=== PATIENT | female | born 1985 | race Caucasian/White ===

== ENCOUNTER 2021-05-11 05:58 | Emergency (ER) | payer MEDICAID, SELFPAY ==
[2021-05-11 06:33] VITALS: BP 120/77; PULSE 87; RESP 18; TEMP 36.3; O2SAT 100
--- NOTE | 2021-05-11 06:51 | ED.GENADULT ---
HPI - General Adult General Chief complaint: General Medical Stated complaint: hip pain Time Seen by Provider: 05/11/21 06:51 Source: patient Mode of arrival: ambulatory History of Present Illness HPI narrative: 35-year-old female who presents with 2 days of acute on chronic right hip pain after she slipped and fell onto her right hip. She has been evaluated by your primary care provider who obtained x-rays and confirmed that there were no acute fractures or dislocations. Patient states that she felt like her hip had improved and then noted that this morning when she woke up she had increasing pain that radiated down the back of her right leg and denies any numbness/tingling/bowel or bladder dysfunction. She also denies any fever, chills, urinary pain/burning/frequency, or GI symptoms. Related Data Previous Rx's Medication Instructions Recorded ketorolac 10 mg tablet 10 mg PO Q6H PRN 5 Days #20 tab 05/11/21 Allergies Allergy/AdvReac Type Severity Reaction Status Date / Time ciprofloxacin Allergy Vomiting Verified 05/11/21 07:07 Review of Systems Review of Systems: Pertinent positives and negatives as stated in HPI 10 point review of systems is otherwise negative. [facility] Social History Social History Patient Tobacco Use Status: Current everyday Tobacco user Smoked in Last 30 Days: Yes Use of substances other than those prescribed or required for medical reasons: No Advance Directives: No Advance Directives Information Provided: Yes Patient : No Physical Exam Vital Signs: Vital Signs: Last Vital Signs Temp 98.6 F 05/11/21 07:02 Pulse 86 05/11/21 07:02 Resp 20 05/11/21 07:02 BP 118/70 05/11/21 07:02 Pulse Ox 99 05/11/21 07:02 Body Mass Index 39.9 VITAL SIGNS: Reviewed. GENERAL: Well developed, well nourished, in no acute distress. HEAD: Normocephalic/atraumatic EYES: PERRLA, EOMI EARS: Ext canals without abnormality NOSE: Nares patent bilateral OROPHARYNX: no oral lesions noted, posterior pharynx clear LUNGS: Normal breath sounds. No adventitious sounds or accessory muscle use. SpO2<100> CARDIOVASCULAR: Regular rate and rhythm without noted murmurs ABDOMEN: Soft, non-tender, non-distended with bowel sounds MUSCULOSKELETAL: No tenderness, deformities, or effusions noted on gross inspection, tenderness on palpation over sciatic on the right EXTREMITIES: No cyanosis, clubbing or edema. NEUROLOGIC: Alert and oriented x 4. Strength 5/5 and sensation to light touch grossly intact x 4, Course Course Course Narrative: 35-year-old female with history and clinical presentation consistent with soft tissue/sciatica type of injury and low clinical suspicion for neurologic etiology or infection. On re-evaluation patient is had some, but not significant improvement in her pain. She was encouraged that this would take a little bit of time in order to completely calm down the flare. There is no suspicion for infectious, kidney, and based on his imaging studies reported by the patient there is no concern for bony/acute joint pathologies. She was otherwise discharged home in stable condition with 2 days off of work and a referral for sports medicine. Medical Decision Making Lab Data Labs: Lab Results 05/11/21 Range/Units 07:08 Urine Color YELLOW Urine Appearance CLEAR Urine pH 6.0 (5.0-8.0) Ur Specific [place] >= 1.030 H (1.005-1.025) Urine Protein NEG (NEG-TRACE) MG/DL Urine Glucose (UA) NEG (NEG) MG/DL Urine Ketones 5 (NEG) MG/DL Urine Blood TRACE (NEG) Urine Nitrite NEG (NEG) Ur Leukocyte Esterase NEG (NEG) Urine RBC 1-4 (0) /HPF Urine WBC 0-2 (0-4) /HPF Ur Squamous Epith Cells 1+ /LPF Urine Bacteria TRACE /LPF Discharge Plan Discharge Clinical Impression: Sciatica of right side Patient Disposition: Home, Self-Care Instructions: Sciatica (ED), Lower Back Exercises (ED) Additional Instructions: Tylenol 1000 mg, orally, every 6 hours as needed for pain control. Do not exceed 4000 mg within 24 hours. Lidocaine patch, available [id number], apply to area of maximal tenderness as directed on the outside packaging. Follow-up with your primary care provider for further discussion regarding your sciatic and possible physical therapy verses Sports Medicine referral. [facility] [address], [place] [address] Return to the ER for acute worsening of symptoms. Prescriptions: New ketorolac 10 mg tablet 10 mg PO Q6H PRN (Reason: pain) 5 Days Qty: 20 RF: 0 Referrals: Joey Starkey PA [Primary Care Provider] - 2 days (Please re-evaluate for right-sided sciatica) Stand Alone Forms: Work/School Release
[2021-05-11 07:02] VITALS: BP 118/70; PULSE 86; RESP 20; TEMP 37; O2SAT 99; BMI 39.9
[2021-05-11 07:14] LABS: Glucose Urine UA NEG (NEG); Leukocyte Esterase Urine NEG (NEG); Nitrite Urine NEG (NEG); Specific Gravity - Urine >= 1.030 (1.005-1.025); UACC Culture Trigger NO; Urine Blood TRACE (NEG); Urine Ketones 5 MG/DL (NEG); Urine Protein NEG (NEG-TRACE)
[2021-05-11 07:15] LABS: Appearance Urine CLEAR; Color Urine YELLOW
[2021-05-11] MEDS: Acetaminophen 325 MG TABLET 975 MG PO (07:17)
[2021-05-11] MEDS: Lidocaine 4 % Patch ADH..PATCH 1 PATCH TRANSDERMA (07:17)
[2021-05-11] MEDS: Ketorolac Tromethamine 15 MG/ML VIAL IM (07:17)
[2021-05-11 07:23] LABS: Bacteria Urine TRACE /LPF; Squamous Epithelial Cell Urine 1+ /LPF; WBC Urine 0-2 /HPF (0-4)
== END 2021-05-11 08:27 | disposition home or self-care (01) ==
PROVIDERS: Emergency Provider Student in an Organized Health Care Education/Training Program; PCP Physician Assistant
DX: M54.41 Lumbago with sciatica, right side (principal); M25.551 Pain in right hip; F17.200 Nicotine dependence, unspecified, uncomplicated; Z71.6 Tobacco abuse counseling; Z79.899 Other long term (current) drug therapy
CPT/HCPCS: 81001; 96372; 99284; J1885

== ENCOUNTER 2021-06-03 14:10 | Emergency (ER) | payer MEDICAID, SELFPAY ==
--- NOTE | ~2021-06-03 | US_ITS ---
EXAMINATION: US PELVIS CLINICAL INFORMATION: Left adnexal pain COMPARISON: None TECHNIQUE: Ultrasound of the pelvis is performed using both transabdominal and transvaginal transducers along with Doppler. Transvaginal imaging is performed due to inadequate visualization transabdominally. FINDINGS: Uterus: The uterus is anteverted and measures 8.6 x 4.0 x 4.[address] limiting assessment. No gross endometrial thickening. The uterus is smooth in contour and has normal myometrial echogenicity. No visible fibroid. Adnexa: Both ovaries are visualized. There is normal color flow to the adnexa. There is no ovarian torsion. There is no pelvic ascites or fluid collection. Right ovary is absent consistent surgical history. Left ovary measures 15.2 mL in volume without any pathologic findings. There is normal intravenous flow seen to the left ovary. No free fluid. US/US pelvic and transvaginal IMPRESSION: Normal appearance of the remaining left ovary. No evidence of any active torsion or focal mass. IUD in place without migration grossly.
--- NOTE | ~2021-06-03 | US_ITS ---
EXAMINATION: US PELVIS CLINICAL INFORMATION: Left adnexal pain COMPARISON: None TECHNIQUE: Ultrasound of the pelvis is performed using both transabdominal and transvaginal transducers along with Doppler. Transvaginal imaging is performed due to inadequate visualization transabdominally. FINDINGS: Uterus: The uterus is anteverted and measures 8.6 x 4.0 x 4.[address] limiting assessment. No gross endometrial thickening. The uterus is smooth in contour and has normal myometrial echogenicity. No visible fibroid. Adnexa: Both ovaries are visualized. There is normal color flow to the adnexa. There is no ovarian torsion. There is no pelvic ascites or fluid collection. Right ovary is absent consistent surgical history. Left ovary measures 15.2 mL in volume without any pathologic findings. There is normal intravenous flow seen to the left ovary. No free fluid. US/US pelvic ovarian doppler IMPRESSION: Normal appearance of the remaining left ovary. No evidence of any active torsion or focal mass. IUD in place without migration grossly.
[2021-06-03 14:18] VITALS: BP 125/79; PULSE 100; RESP 20; TEMP 36.9; O2SAT 98; BMI 23.3
[2021-06-03 14:49] LABS: Appearance Urine CLEAR; Color Urine YELLOW; Glucose Urine UA NEG (NEG); Leukocyte Esterase Urine NEG (NEG); Nitrite Urine NEG (NEG); PH 5.5 (5.0-8.0); Specific Gravity - Urine >= 1.030 (1.005-1.025); UACC Culture Trigger NO; Urine Blood TRACE (NEG); Urine Ketones NEG (NEG); Urine Protein TRACE MG/DL (NEG-TRACE)
[2021-06-03 14:56] LABS: Bacteria Urine TRACE /LPF; RBC Urine 0-2 /HPF (0); Squamous Epithelial Cell Urine 2+ /LPF; WBC Urine 0 /HPF (0-4)
--- NOTE | 2021-06-03 15:35 | ED_ITS ---
HPI - Female Genitourinary General Chief complaint: General Medical Stated complaint: ovarian pain Time Seen by Provider: 06/03/21 15:31 Source: patient Mode of arrival: ambulatory Limitations: no limitations History of Present Illness HPI Narrative: 55-year-old female presents with 2 days of left lower pelvic pain. States that it feels burning deep inside her left pelvic vaginal area. She has been nauseous, states the pain is a 10/10. Patient has a history of oophorectomy due to a cyst. Patient has . States she has had white vaginal discharge and dysuria. No vaginal itching, no vaginal bleeding, no hematuria. Patient has an IUD, has not had any breakthrough bleeding, no fevers, no vomiting, no abdominal pain, no radiation of back pain. Patient has no new sex partners, she has been for 10 years and is sexually active with MD elicited complaint: dysuria and pelvic pain Pertinent past history: IUD Onset (ago): day(s) (2) Severity: severe Severity scale (1-10): 10 Quality of pain: burning Consistency: constant Vaginal discharge: white Vaginal bleeding: none Urinary symptoms: Dysuria Relieving factors: none Associated symptoms: nausea Treatment prior to arrival: none Sexual activity: Yes Related Data Previous Rx's Medication Instructions Recorded ketorolac 10 mg tablet 10 mg PO Q6H PRN 5 Days #20 tab 05/11/21 ketorolac 10 mg tablet 10 mg PO Q6H 5 Days #20 tab 06/03/21 Allergies Allergy/AdvReac Type Severity Reaction Status Date / Time ciprofloxacin Allergy Vomiting Verified 06/03/21 14:18 Review of Systems Constitutional: Constitutional: Denies body ache(s), Denies chills, Denies fatigue, Denies fever(s), Denies headache(s), Denies malaise and Denies weakness Eyes: Eyes: Denies diplopia ENT: Denies vertigo, Denies dizziness, Denies headache(s) and Denies throat swelling Cardiovascular: Cardiovascular: Denies chest pain, Denies syncope, Denies leg edema, Denies lightheadedness, Denies Loss of Consciousness, Denies palpitations and Denies dyspnea Respiratory: Respiratory: Denies chest congestion, Denies cough and Denies dyspnea Gastrointestinal: Gastrointestinal: Reports abdominal pain, Denies hematochezia, Denies constipation, Denies diarrhea and Denies vomiting Genitourinary: Genitourinary: Denies abnormal vaginal bleeding, Denies hematuria, Denies difficulty voiding, Denies genital pruritis, Reports dysuria, Reports pelvic pain, Denies sexual dysfunction, Denies flank pain, Denies urinary incontinence, Denies urinary urgency, Reports vaginal discharge, Denies vaginal odor and Denies vaginal pruritus Musculoskeletal: Musculoskeletal: Reports no additional musculoskeletal complaints Neurologic: Denies confusion, Denies vertigo, Denies dizziness, Denies syncope, Denies headache(s) and Denies weakness Psychiatric: Psychiatric: Denies anxiety, Denies confusion and Denies depression Endocrine: Endocrine: Denies fatigue and Denies palpitations Allergic/Immunologic: Allergic/Immunologic: Denies throat swelling PMFSH Past Medical History Medical History (Updated 06/03/21 @ 18:34 by AUDREY Roach) Anxiety Depression UTI (urinary tract infection) Surgical History History of salpingo-oophorectomy Social History Social History Patient Tobacco Use Status: Current everyday Tobacco user Advance Directives: No Patient : No Physical Exam Vital Signs: Vital Signs: Last Vital Signs Temp 98.4 F 06/03/21 14:18 Pulse 100 06/03/21 14:18 Resp 20 06/03/21 14:18 BP 125/79 06/03/21 14:18 Pulse Ox 98 06/03/21 14:18 Body Mass Index 23.3 Const: General: alert, awake and in distress (d/t pain) mild; No confusion Nutritional Appearance: obese centrally obese Orientation/consciousness: No confusion Limitations: no limitations HENMT: Head: Yes normal to inspection, Yes normocephalic and Yes atraumatic Ears: hearing grossly normal bilaterally, external ears normal, TM's normal bilaterally and EAC's normal General nose exam: Normal external nose present Face and sinus: Yes normal facial exam and Yes sinuses nontender Mouth: Normal oral and palatal mucosa present Throat: Yes posterior oropharynx normal Eyes: Conjunctivae: conjunctivae normal Pupils: Equal, round and reactive pupils present EOM: EOMs intact bilaterally Neck: Neck: Yes full ROM, Yes no lymphadenopathy and Yes supple Resp: Effort & Inspection: normal respiratory effort and able to speak in complete sentences Auscultation: clear to auscultation bilaterally, no crackles, no rales, no rhonchi and no wheezes Cardio: Rate: regular rate Rhythm: regular rhythm Heart sounds: S1 normal heart sound present and S2 normal heart sound present GI: Inspection: Yes normal to inspection Palpation (GI): Soft to palpation, nontender, no guarding and not rigid Percussion: Yes normal to percussion Auscultation: normal bowel sounds Skin: General skin exam: no rashes or lesions noted Neuro: General: No confusion Cranial nerves: Yes Equal, round and reactive pupils present Extrem: General: Yes normal to inspection and Yes full ROM Psych: Appearance: grossly normal Affect: normal affect Attitude: cooperative Thought process: Normal thought process present Course Course Course Narrative: 35-year-old female with IUD in past medical history of oophorectomy due to cyst presents for left lower pelvic pain, with white vaginal discharge and mild hematuria. Will get urine, , STD test, do pelvic exam, decide if patient needs a pelvic ultrasound Reevaluation(s) Reevaluation #1: Patient has no cervical motion tenderness but does have left adnexal tenderness. Patient has clear stretchy discharge, but looks like cervical Spinnaker discharge. IUD strings were visualized Ordered pelvic US Reevaluation #2: UA negative, U preg negative. NO trich or yeast. US: Normal appearance of the remaining left ovary. No evidence of any active torsion or focal mass. IUD in place without migration grossly. Consult patient will call her with results of other STD testing. Counseled patient that this looks like ovulation pain. Asked her to call her pattern clerk tomorrow morning. Started her on ketorolac. Constipation if she has any worsening symptoms, she should return to the emergency [facility] - Female Genitourinary Lab Data Labs: Lab Results 06/03/21 06/03/21 Range/Units 14:32 14:32 Urine Color YELLOW Urine Appearance CLEAR Urine pH 5.5 (5.0-8.0) Ur Specific [place] >= 1.030 H (1.005-1.025) Urine Protein TRACE (NEG-TRACE) MG/DL Urine Glucose (UA) NEG (NEG) MG/DL Urine Ketones NEG (NEG) MG/DL Urine Blood TRACE (NEG) Urine Nitrite NEG (NEG) Ur Leukocyte Esterase NEG (NEG) Urine RBC 0-2 (0) /HPF Urine WBC 0 (0-4) /HPF Ur Squamous Epith Cells 2+ /LPF Urine Bacteria TRACE /LPF Urine Test NEGATIVE (NEGATIVE) Discharge Plan Discharge Clinical Impression: Ovulation pain Patient Disposition: Home, Self-Care Instructions: Erin (ED) Additional Instructions: Please take ketorolac as prescribed. Please call your pattern clerk tomorrow morning for a follow-up appointment. Please read the printout I included in your discharge on ovarian pain. Please return to emergency room if you have worsening pelvic pain, abdominal pain, fevers, nausea vomiting, or any other symptoms. Prescriptions: New ketorolac 10 mg tablet 10 mg PO Q6H 5 Days Qty: 20 RF: 0 No Action ketorolac 10 mg tablet 10 mg PO Q6H PRN (Reason: pain) 5 Days Qty: 20 RF: 0
[2021-06-03] MEDS: oxyCODONE HCl Immed Release 5 MG TABLET PO ×2 (15:57→18:54)
[2021-06-03 16:42] LABS: UPreg QC Valid YES; Urine Pregnancy NEGATIVE (NEGATIVE)
--- NOTE | 2021-06-03 18:57 | PC.NURSE ---
AUDREY HICKMAN CANCELLED IV AND LAB US NORMAL.
[2021-06-04 03:24] LABS: CT PCR NOT DETECTED (Not Detect.); NG PCR NOT DETECTED (Not Detect.)
[2021-06-04 08:41] LABS: BV Int Neg Control Negative (Negative); BV Int Pos Control Positive (Positive)
== END 2021-06-03 19:04 | disposition home or self-care (01) ==
PROVIDERS: Physician Assistant; Emergency Provider Emergency Medicine Emergency Medical Services; PCP Physician Assistant
DX: R30.0 Dysuria (principal); R10.2 Pelvic and perineal pain; Z79.899 Other long term (current) drug therapy; F17.200 Nicotine dependence, unspecified, uncomplicated; Z71.6 Tobacco abuse counseling
CPT/HCPCS: 76830; 76856; 81001; 81025; 87480; 87491; 87510; 87591; 87660; 93975; 96372; 99284

== ENCOUNTER 2021-08-31 13:34 | Emergency (ER) | payer MEDICAID, SELFPAY ==
--- NOTE | ~2021-08-31 | XR_ITS ---
EXAMINATION: XR CHEST CLINICAL INFORMATION: Chest pain COMPARISON: None TECHNIQUE: AP portable view of the chest was obtained. FINDINGS: No significant abnormality is noted involving the heart, lungs, mediastinum, bony thorax or soft tissues. XR/XR chest 1V IMPRESSION: No acute disease.
--- NOTE | 2021-08-31 13:36 | ED_ITS ---
HPI - Chest Pain General Chief Complaint: Chest Pain Stated Complaint: cp Time Seen by Provider: 08/31/21 13:36 Source: patient Mode of arrival: EMS Limitations: no limitations History of Present Illness MD complaint: chest pain Onset (ago): hour(s) (started around 1130am) Timing of current episode: constant Prior episodes: No Onset: during rest Pain location: substernal Pain radiation: none Severity: moderate Quality: aching Relieving factors: nothing Exacerbating factors: inspiration, palpation and movement Context: recent illness (has had a cold all week - 2 COVID vaccines) Associated symptoms: dyspnea Treatment prior to arrival: none Related Data Previous Rx's Medication Instructions Recorded ketorolac 10 mg tablet 10 mg PO Q6H PRN 5 Days #20 tab 05/11/21 ketorolac 10 mg tablet 10 mg PO Q6H 5 Days #20 tab 06/03/21 cyclobenzaprine 10 mg tablet 10 mg PO TID PRN #14 tab 08/31/21 ibuprofen 600 mg tablet 600 mg PO Q6H PRN #30 tab 08/31/21 lidocaine 4 % topical patch 1 patch TOPICAL DAILY PRN #10 ea 08/31/21 Allergies Allergy/AdvReac Type Severity Reaction Status Date / Time ciprofloxacin Allergy Vomiting Verified 06/03/21 14:18 Review of Systems Review of Systems: Constitutional : No Weight loss, No Fever, No Chills ENT/Mouth : No sore throat, pos Rhinorrhea Eyes: No Eye Pain, No Swelling Cardiovascular : pos Chest Pain, pos SOB, no Dyspnea on Exertion, No Orthopnea, No Edema, No Palpitations Respiratory : pos Cough, No Sputum Gastrointestinal : no Nausea, No Vomiting, No Diarrhea, No abdominal Pain, No Hematochezia, No Melena Genitourinary : No Dysuria, No Urinary Frequency Musculoskeletal : No joint pain, No Myalgias, No Joint Swelling Skin : No Skin Lesions, No rash Neuro : No Weakness, No Numbness, No Dizziness, No Headache Psych : No Anxiety/Panic, No Depression Heme/Lymph: No Bruising, No Lymphadenopathy Endocrine : No Polyuria, No Polydipsia All other systems reviewed and are negative PMFSH Past Medical History Medical History Anxiety Depression UTI (urinary tract infection) Surgical History History of salpingo-oophorectomy Social History Social History Alcohol intake: never Patient Tobacco Use Status: Current everyday Tobacco user Use of substances other than those prescribed or required for medical reasons: No Advance Directives: No Advance Directives Information Provided: No Patient : No Physical Exam Vital Signs: Vital Signs: Last Vital Signs Temp 98.0 F 08/31/21 14:00 Pulse 75 08/31/21 15:41 Resp 14 08/31/21 15:41 BP 113/68 08/31/21 15:41 Pulse Ox 99 08/31/21 15:41 BMI result Body Mass Index 39.1 Appearance: Alert. Oriented X3. No acute distress. Eyes: Pupils equal, round and reactive to light. ENT: Pharynx normal. Neck: Normal inspection. Neck supple. CVS: Normal heart rate and rhythm. Pulses normal. Chest: ttp along lower sternum reproduces pain Respiratory: No respiratory distress. Breath sounds normal. Abdomen: Soft and nontender. Skin: Skin warm and dry. Normal skin color. Normal skin turgor. Extremities: No lower extremity edema. No calf ttp Neuro: Oriented X 3. No motor deficit. No sensory deficit. Course Course Course Narrative: signed out to Alyson SENIOR PROGRAM MANAGER pending repeat troponin MDM - Chest Pain MDM Narrative Medical decision making narrative: 36 yo female with anxiety, no OCPs here with reproduceable CWP - onset 2 hours ago has had URI symptoms and pain is along sternum. Seems atypical for ACS, likely costochondritis. PERC negative - will obtain labs, CXR, EKG, COVID swab, troponin x 2. Dispo per results and findings. Lab Data Result diagrams: 08/31/21 13:56 08/31/21 13:56 Labs: Lab Results 08/31/21 08/31/21 08/31/21 Range/Units 13:51 13:56 13:56 WBC 10.3 (4.8-10.8) X10*3/uL RBC 4.39 (4.20-5.50) X10*6/uL Hgb 13.5 (12.0-16.0) g/dl Hct 39.8 (37.0-47.0) % MCV 90.7 (80.0-98.0) fL MCH 30.8 (27.0-33.0) pg MCHC 33.9 (31.0-35.0) g/dl RDW 12.2 (11.0-16.0) % Plt Count 251 (160-400) X10*3/uL MPV 10.5 (9.4-12.3) fL Immature Gran % (Auto) 0.5 H (0.0-0.4) % Neut % (Auto) 62.0 (45-73) % Lymph % (Auto) 28.7 (20-40) % Nelson % (Auto) 5.2 (2-11) % Eos % (Auto) 3.0 (0-4) % Baso % (Auto) 0.6 (0-2) % Lymph # (Auto) 3.0 (1.2-4.9) X10*3/uL Nelson # (Auto) 0.5 (0.1-1.2) X10*3/uL Eos # (Auto) 0.3 (0.0-0.4) X10*3/uL Baso # (Auto) 0.1 (0.0-0.2) X10*3/uL Abs Immat Gran (auto) 0.05 H (0.00-0.03) X10*3/uL Absolute Neuts (auto) 6.4 (2.0-8.3) x10*3/uL Absolute Nucleated RBC 0.000 (0.0-0.012) X10*3/uL Nucleated RBC % (auto) 0.0 (0.0-0.2) /100WBC Sodium 140 (135-145) mmol/L Potassium 3.5 (3.3-5.1) mmol/L Chloride 108 (96-108) mmol/L Carbon Dioxide 25 (22-29) mmol/L Anion Gap 11 L (12-20) BUN 12 (9-16) mg/dL Creatinine 0.72 (0.5-1.4) mg/dL Estim Creat Clear Calc 133.5 Estimated GFR > 60 Random Glucose 120 H (60-115) mg/dL Calcium 9.0 (8.4-10.2) mg/dL Magnesium 2.1 (1.6-2.6) mg/dL Total Bilirubin 0.6 (0.0-1.0) mg/dL Direct Bilirubin 0.2 (0.0-0.5) mg/dL AST 31 (5-31) U/L ALT 47 H (0-31) U/L Alkaline Phosphatase 105 (39-117) U/L Troponin I High Sens (<3.5-17.0) ng/L Total Protein 6.6 (6.5-8.0) g/dL Albumin 4.0 (3.5-5.0) g/dL Lipase 23 (8-78) U/L COVID-19 (KRISTIN) Negative (Negative) COVID-19 Clin Com See Note 08/31/21 Range/Units 13:56 WBC (4.8-10.8) X10*3/uL RBC (4.20-5.50) X10*6/uL Hgb (12.0-16.0) g/dl Hct (37.0-47.0) % MCV (80.0-98.0) fL MCH (27.0-33.0) pg MCHC (31.0-35.0) g/dl RDW (11.0-16.0) % Plt Count (160-400) X10*3/uL MPV (9.4-12.3) fL Immature Gran % (Auto) (0.0-0.4) % Neut % (Auto) (45-73) % Lymph % (Auto) (20-40) % Nelson % (Auto) (2-11) % Eos % (Auto) (0-4) % Baso % (Auto) (0-2) % Lymph # (Auto) (1.2-4.9) X10*3/uL Nelson # (Auto) (0.1-1.2) X10*3/uL Eos # (Auto) (0.0-0.4) X10*3/uL Baso # (Auto) (0.0-0.2) X10*3/uL Abs Immat Gran (auto) (0.00-0.03) X10*3/uL Absolute Neuts (auto) (2.0-8.3) x10*3/uL Absolute Nucleated RBC (0.0-0.012) X10*3/uL Nucleated RBC % (auto) (0.0-0.2) /100WBC Sodium (135-145) mmol/L Potassium (3.3-5.1) mmol/L Chloride (96-108) mmol/L Carbon Dioxide (22-29) mmol/L Anion Gap (12-20) BUN (9-16) mg/dL Creatinine (0.5-1.4) mg/dL Estim Creat Clear Calc Estimated GFR Random Glucose (60-115) mg/dL Calcium (8.4-10.2) mg/dL Magnesium (1.6-2.6) mg/dL Total Bilirubin (0.0-1.0) mg/dL Direct Bilirubin (0.0-0.5) mg/dL AST (5-31) U/L ALT (0-31) U/L Alkaline Phosphatase (39-117) U/L Troponin I High Sens < 3.5 (<3.5-17.0) ng/L Total Protein (6.5-8.0) g/dL Albumin (3.5-5.0) g/dL Lipase (8-78) U/L COVID-19 (KRISTIN) (Negative) COVID-19 Clin Com ECG Data ECG #1: Attestation: I personally reviewed and interpreted this ECG as follows: ECG interpretation date: 08/31/21 ECG interpretation time: 14:03 Interpretation: Rate: 74 Rhythm: NSR [place]: normal Normal P waves. Normal YESSENIA. Normal QRS complex. ST T wave : no RAYNE, normal qTC: normal prior studies: no acute ischemia The study has been interpreted contemporaneously by me. . Discharge Plan Discharge Clinical Impression: Costochondritis Instructions: Costochondritis (ED) Additional Instructions: return to ED for any worsening symptoms or concerns COVID test negative 08/31 Prescriptions: New cyclobenzaprine 10 mg tablet 10 mg PO TID PRN (Reason: muscle spasm) Qty: 14 RF: 0 lidocaine 4 % adhesive patch,medicated 1 patch topical DAILY PRN (Reason: pain) Qty: 10 RF: 0 ibuprofen 600 mg tablet 600 mg PO Q6H PRN (Reason: pain) Qty: 30 RF: 0 No Action ketorolac 10 mg tablet 10 mg PO Q6H PRN (Reason: pain) 5 Days Qty: 20 RF: 0 ketorolac 10 mg tablet 10 mg PO Q6H 5 Days Qty: 20 RF: 0 Referrals: Joey Starkey PA [Primary Care Provider] - 3 days (if not better ) Stand Alone Forms: Work/School Release
[2021-08-31 13:42] VITALS: BP 120/80; BP 126/68; PULSE 80; PULSE 81; RESP 14; TEMP 36.7; O2SAT 100; O2SAT 99; BMI 39.1
--- NOTE | 2021-08-31 13:45 | ECG_ITS ---
Test Reason : CHEST PAIN Blood Pressure : / mmHG Vent. Rate : 074 BPM Atrial Rate : 074 BPM P-R Int : 146 ms QRS Dur : 082 ms QT Int : 386 ms P-R-T Axes : 022 030 024 degrees QTc Int : 428 ms Normal sinus rhythm Normal ECG No previous ECGs available Referred By: Beatriz Pearce Electronically Signed By:MAGDIEL MOLINA
[2021-08-31 14:00] VITALS: PULSE 74; TEMP 36.7; O2SAT 100
[2021-08-31] MEDS: Cyclobenzaprine HCl 10 MG TABLET PO (14:00)
[2021-08-31 14:01] LABS: MANUAL DIFF FLAG NO
[2021-08-31 14:02] LABS: Basophils Absolute Auto 0.1 X10*3/uL (0.0-0.2); Basophils Percent Auto 0.6 % (0-2); Eosinophils Absolute Auto 0.3 X10*3/uL (0.0-0.4); Hematocrit 39.8 % (37.0-47.0); Hemoglobin 13.5 g/dl (12.0-16.0); Imm Gran Abs Auto 0.05 X10*3/uL (0.00-0.03); Imm Gran Pct Auto 0.5 % (0.0-0.4); Lymphocytes Percent Auto 28.7 % (20-40); Mean Corpuscular HGB Conc 33.9 g/dl (31.0-35.0); Mean Corpuscular Hemoglobin 30.8 pg (27.0-33.0); Mean Corpuscular Volume 90.7 fL (80.0-98.0); Mean Platelet Volume 10.5 fL (9.4-12.3); Monocytes Absolute Auto 0.5 X10*3/uL (0.1-1.2); Monocytes Percent Auto 5.2 % (2-11); Neutrophils Absolute Auto 6.4 x10*3/uL (2.0-8.3); Platelet Count 251 X10*3/uL (160-400); Red Blood Count 4.39 X10*6/uL (4.20-5.50); Red Cell Distribution Width 12.2 % (11.0-16.0); White Blood Count 10.3 X10*3/uL (4.8-10.8)
[2021-08-31 14:18] LABS: COVID-19 Test Negative (Negative)
[2021-08-31 14:19] LABS: Alanine Aminotransferase 47 U/L (0-31); Alkaline Phosphatase 105 U/L (39-117); Anion Gap 11 (12-20); Aspartate Amino Transferase 31 U/L (5-31); Bilirubin Direct 0.2 mg/dL (0.0-0.5); Bilirubin Total 0.6 mg/dL (0.0-1.0); Blood Urea Nitrogen 12 mg/dL (9-16); Carbon Dioxide 25 mmol/L (22-29); Chloride 108 mmol/L (96-108); Creatinine Clr Calc Pharmacy 133.5; Estimated Glomerular Filt Rate > 60; Glucose Random 120 mg/dL (60-115); Lipase 23 U/L (8-78); Magnesium 2.1 mg/dL (1.6-2.6); Potassium 3.5 mmol/L (3.3-5.1); Sodium 140 mmol/L (135-145); Total Protein 6.6 g/dL (6.5-8.0)
[2021-08-31 14:25] LABS: Troponin-I High Sensitivity < 3.5 ng/L (<3.5-17.0)
[2021-08-31 14:38] VITALS: BP 121/73; PULSE 81; RESP 12; O2SAT 99
[2021-08-31] MEDS: Lidocaine 4 % Patch ADH..PATCH 1 PATCH TRANSDERMA (14:39)
[2021-08-31 15:41] VITALS: BP 113/68; PULSE 75; RESP 14; O2SAT 99
[2021-08-31 16:51] LABS: Troponin-I High Sensitivity < 3.5 ng/L (<3.5-17.0)
== END 2021-08-31 17:26 | disposition home or self-care (01) ==
PROVIDERS: Emergency Provider Emergency Medicine; PCP Physician Assistant
DX: M94.0 Chondrocostal junction syndrome [Tietze] (principal); Z20.822 Contact with and (suspected) exposure to COVID-19; F17.200 Nicotine dependence, unspecified, uncomplicated
CPT/HCPCS: 36415; 71045; 80048; 80076; 83690; 83735; 84484; 85025; 87635; 93005; 99284; 99285

== ENCOUNTER 2021-11-21 21:56 | Emergency (ER) | payer MEDICAID, SELFPAY ==
--- NOTE | ~2021-11-21 | CT_ITS ---
EXAMINATION: CT ABDOMEN AND PELVIS WITH CONTRAST CLINICAL INFORMATION: Left upper quadrant pain COMPARISON: None TECHNIQUE: Multidetector volumetric images were obtained from the superior aspect of the liver through the pubic symphysis following administration 85 mL of Omnipaque 350 intravenous contrast. Sagittal and coronal reformatted images were obtained on the technologist's workstation. Oral contrast: No This CT examination was performed using dose optimization techniques as appropriate, variously including the following: *Automated exposure control *Adjustment of mA and/or kV according to patient size (this includes techniques or standardized protocols for targeted exams where dose is matched to indication/reason for exam; i.e. extremities or head) *Use of iterative reconstruction technique DLP: 885 mGy-cm FINDINGS: LUNG BASES: The visualized lung bases are unremarkable. LIVER, GALLBLADDER, AND BILIARY TREE: The liver is enlarged measuring 20.8 cm in greatest length and demonstrates decreased attenuation consistent with hepatic steatosis. Normal in size, shape, and attenuation. No focal hepatic lesion or biliary ductal dilatation is present. The gallbladder is unremarkable with no evidence of radiopaque gallstones, gallbladder wall thickening, or obvious pericholecystic inflammatory changes. PANCREAS: Unremarkable. SPLEEN: Unremarkable. ADRENAL GLANDS: Unremarkable. KIDNEYS AND URETERS: The kidneys are normal in size, shape, and attenuation. A 4 mm cyst is present at the lower pole the right kidney. No suspicious solid renal masses are seen. No hydronephrosis, hydroureter, or calculi seen. No perinephric stranding. BLADDER: Unremarkable. GASTROINTESTINAL TRACT: The small and large bowel are unremarkable. The appendix is unremarkable. ABDOMINAL WALL: No significant hernia is appreciated. LYMPH NODES: No retroperitoneal lymphadenopathy. VASCULAR: Unremarkable. PELVIC VISCERA: Anteverted uterus is present which contains an IUD in normal position. An abnormal adnexal mass or free intraperitoneal fluid is not seen. OSSEOUS STRUCTURES: Unremarkable. CT/CT abdomen pelvis w con IMPRESSION: No significant abnormality aside from an enlarged fatty liver. A definite cause for the patient's left upper quadrant pain has not been found. Fleischner guidelines were followed.
[2021-11-21 22:06] VITALS: BP 116/70; BP 135/97; PULSE 104; PULSE 99; RESP 20; TEMP 37.1; O2SAT 100; O2SAT 98
[2021-11-21 22:09] VITALS: BP 116/70; PULSE 101; RESP 20; TEMP 37.1; O2SAT 100; BMI 39.9
[2021-11-21] MEDS: Ketorolac Tromethamine 15 MG/ML VIAL 30 MG IVPUSH (22:30)
--- NOTE | 2021-11-21 22:35 | ED_ITS ---
HPI - Abdominal Pain General Chief Complaint: Abdominal Pain Stated Complaint: ABDOMINAL PAIN Time Seen by Provider: 11/21/21 22:22 Source: patient Mode of arrival: ambulatory Limitations: no limitations History of Present Illness HPI narrative: 36-year-old female no significant medical history presents to the emergency department with abdominal pain to the left upper quadrant and nausea and vomiting since 19:30. Patient tells me that this came on suddenly. And she is having worse pain of her life. He tells me the pain is severe, sharp/stabbing located to the left upper quadrant. She tells me the pain does not radiate. She tells me she had steak for dinner. She tells me she usually does not have steak for dinner. She tells me after vomiting she felt slightly dizzy like she could not catch her balance she is not dizzy at this time. She denies diarrhea, chest pain, shortness of breath, fevers, chills, no recent sick contacts. No previous abdominal surgeries. MD elicited complaint: abdominal pain Pertinent past history: none Pain Consistency: constant Location: LUQ Severity: severe Quality: stabbing Radiation: none Migration to: no migration Exacerbating factors: nothing Relieving factors: nothing Associated symptoms: nausea and vomiting Related Data Previous Rx's Medication Instructions Recorded ketorolac 10 mg tablet 10 mg PO Q6H PRN 5 Days #20 tab 05/11/21 ketorolac 10 mg tablet 10 mg PO Q6H 5 Days #20 tab 06/03/21 cyclobenzaprine 10 mg tablet 10 mg PO TID PRN #14 tab 08/31/21 ibuprofen 600 mg tablet 600 mg PO Q6H PRN #30 tab 08/31/21 lidocaine 4 % topical patch 1 patch TOPICAL DAILY PRN #10 ea 08/31/21 ondansetron 4 mg disintegrating 4 mg PO ONCE PRN #10 tab 11/21/21 tablet Allergies Allergy/AdvReac Type Severity Reaction Status Date / Time ciprofloxacin Allergy Vomiting Verified 06/03/21 14:18 Review of Systems Review of Systems Constitutional : No Weight loss, No Fever, No Chills, No Fatigue, No Malaise ENT/Mouth : No sore throat, No Rhinorrhea Eyes: No Eye Pain, No Swelling, No Redness Cardiovascular : No Chest Pain, No SOB, No Dyspnea on Exertion, No Orthopnea, No Edema, No Palpitations Respiratory : No Cough, No Sputum, No Wheezing Gastrointestinal : + Nausea, + Vomiting, No Diarrhea, No Constipation, + abdominal Pain, No Hematochezia, No Melena Genitourinary : No Dysuria, No Urinary Frequency, No Hematuria, Musculoskeletal : No joint pain, No Myalgias, No Joint Swelling Skin : No Skin Lesions, No rash Neuro : No Weakness, No Numbness, No Dizziness, No Headache Psych : No Anxiety/Panic, No Depression All other systems reviewed and are negative Yes all other systems are reviewed and are negative [facility] Past Medical History Attestation statement: The following information was validated with the patient. Source: old records reviewed and nursing notes reviewed Medical History Anxiety Depression UTI (urinary tract infection) Surgical History History of salpingo-oophorectomy Social History Social History Alcohol intake: never Patient Tobacco Use Status: Current everyday Tobacco user Advance Directives: No Physical Exam ED Vital Signs: Vital Signs - 24 hr 11/21/21 22:06 11/21/21 22:09 11/22/21 00:23 Temperature 98.8 F 98.8 F 98.9 F Pulse Rate 104 H 101 H 102 H Respiratory Rate 20 20 12 Blood Pressure 116/70 116/70 118/84 Pulse Oximetry 98 100 99 BMI result Body Mass Index 39.9 Vital signs stable. Appearance: Alert.? Oriented X3.? No acute distress.? Head: Normocephalic, atraumatic, no step-offs or deformities Eyes: Pupils equal, round and reactive to light.? ENT: Pharynx normal.? Neck: Normal inspection.? Neck supple.? CVS: Normal heart rate and rhythm.? Pulses normal.? Respiratory: No respiratory distress.? Breath sounds normal.? Abdomen: Soft and + tender to left upper quadrant..? Normoactive bowel sounds. Skin: Skin warm and dry.? Normal skin color.? Normal skin turgor.? Extremities: No lower extremity edema.? No calf ttp. 5/5 strength to bilateral upper and lower extremities Back: No midline tenderness, no C-spine tenderness, full range of motion, no CVA tenderness bilaterally Neuro: Oriented X 3.? No motor deficit.? No sensory deficit. CN 2-12 intact . Ambulating with steady gait normal coordination. Course Reevaluation(s) Reevaluation #1: Patient with leukocytosis likely secondary to nausea and vomiting. Patient with no significant electrolyte abnormalities. Patient's urine clean. COVID and influenza negative. CT of the abdomen and pelvis with no acute findings other than a fatty liver. At this time I suspect a viral infection. Unlikely appendicitis, cholecystitis, splenic injury. At this time patient will be discharged home with strict return precautions. She will be given Zofran for nausea/vomiting. Advised her to return with new or worsening symptoms and follow-up with her PCP. Time: 00:45 MDM - Abdominal Pain MDM Narrative Medical decision making narrative: 2229 36 yo f no pmhx presents w/ n/v and LUQ abdominal pain since 7:30 pm today. Physical examination significant for left upper quadrant pain on palpation. No other abnormalities on exam. Based off patient history and physical exam unlikely that this is appendicitis, cholecystitis, diverticulitis. Unlikely small-bowel obstruction. This is likely viral in origin. Plan at this time basic labs, urine, CT of the abdomen pelvis, pain meds and Zofran. Medical Records Attestation: I reviewed the patient's medical records. Lab Data Attestation: I reviewed the patient's lab results. Result diagrams: 11/21/21 22:37 11/21/21 22:37 Labs: Lab Results 11/21/21 11/21/21 11/21/21 Range/Units 22:37 22:37 22:37 WBC 23.6 H (4.8-10.8) X10*3/uL RBC 5.15 (4.20-5.50) X10*6/uL Hgb 15.5 (12.0-16.0) g/dl Hct 46.8 (37.0-47.0) % MCV 90.9 (80.0-98.0) fL MCH 30.1 (27.0-33.0) pg MCHC 33.1 (31.0-35.0) g/dl RDW 12.1 (11.0-16.0) % Plt Count 291 (160-400) X10*3/uL MPV 10.1 (9.4-12.3) fL Immature Gran % (Auto) 0.7 H (0.0-0.4) % Neut % (Auto) 85.9 H (45-73) % Lymph % (Auto) 8.1 L (20-40) % [place] % (Auto) 4.1 (2-11) % Eos % (Auto) 0.9 (0-4) % Baso % (Auto) 0.3 (0-2) % Lymph # (Auto) 1.9 (1.2-4.9) X10*3/uL [place] # (Auto) 1.0 (0.1-1.2) X10*3/uL Eos # (Auto) 0.2 (0.0-0.4) X10*3/uL Baso # (Auto) 0.1 (0.0-0.2) X10*3/uL Abs Immat Gran (auto) 0.17 H (0.00-0.03) X10*3/uL Absolute Neuts (auto) 20.3 H (2.0-8.3) x10*3/uL Absolute Nucleated RBC 0.000 (0.0-0.012) X10*3/uL Nucleated RBC % (auto) 0.0 (0.0-0.2) /100WBC Smear Tech's Comments VERIFIED Sodium 138 (135-145) mmol/L Potassium 4.5 D (3.3-5.1) mmol/L Chloride 103 (96-108) mmol/L Carbon Dioxide 23 (22-29) mmol/L Anion Gap 17 (12-20) BUN 17 H (9-16) mg/dL Creatinine 0.85 (0.5-1.4) mg/dL Estim Creat Clear Calc 114.4 Estimated GFR > 60 Random Glucose 111 (60-115) mg/dL Calcium 10.3 H D (8.4-10.2) mg/dL Magnesium 1.6 (1.6-2.6) mg/dL Total Bilirubin 0.7 (0.0-1.0) mg/dL AST 31 (5-31) U/L ALT 45 H (0-31) U/L Alkaline Phosphatase 106 (39-117) U/L Total Protein 7.8 (6.5-8.0) g/dL Albumin 4.7 (3.5-5.0) g/dL Lipase 20 (8-78) U/L Beta HCG, Quant < 2 mIU/mL Urine Color Urine Appearance Urine pH (5.0-8.0) Ur Specific [place] (1.005-1.025) Urine Protein (NEG-TRACE) MG/DL Urine Glucose (UA) (NEG) MG/DL Urine Ketones (NEG) MG/DL Urine Blood (NEG) Urine Nitrite (NEG) Ur Leukocyte Esterase (NEG) Urine RBC (0) /HPF Urine WBC (0-4) /HPF Ur Squamous Epith Cells /LPF Urine Bacteria /LPF Urine Mucus /LPF Urine Test (NEGATIVE) COVID-19 (KRISTIN) (Negative) COVID-19 Clin Com Influenza Type A (GIULIANA) Negative (Negative) Influenza Type B (GIULIANA) Negative (Negative) Influenza A & B Note See Note 11/21/21 11/21/21 11/21/21 Range/Units 22:37 23:19 23:19 WBC (4.8-10.8) X10*3/uL RBC (4.20-5.50) X10*6/uL Hgb (12.0-16.0) g/dl Hct (37.0-47.0) % MCV (80.0-98.0) fL MCH (27.0-33.0) pg MCHC (31.0-35.0) g/dl RDW (11.0-16.0) % Plt Count (160-400) X10*3/uL MPV (9.4-12.3) fL Immature Gran % (Auto) (0.0-0.4) % Neut % (Auto) (45-73) % Lymph % (Auto) (20-40) % [place] % (Auto) (2-11) % Eos % (Auto) (0-4) % Baso % (Auto) (0-2) % Lymph # (Auto) (1.2-4.9) X10*3/uL [place] # (Auto) (0.1-1.2) X10*3/uL Eos # (Auto) (0.0-0.4) X10*3/uL Baso # (Auto) (0.0-0.2) X10*3/uL Abs Immat Gran (auto) (0.00-0.03) X10*3/uL Absolute Neuts (auto) (2.0-8.3) x10*3/uL Absolute Nucleated RBC (0.0-0.012) X10*3/uL Nucleated RBC % (auto) (0.0-0.2) /100WBC Smear Tech's Comments Sodium (135-145) mmol/L Potassium (3.3-5.1) mmol/L Chloride (96-108) mmol/L Carbon Dioxide (22-29) mmol/L Anion Gap (12-20) BUN (9-16) mg/dL Creatinine (0.5-1.4) mg/dL Estim Creat Clear Calc Estimated GFR Random Glucose (60-115) mg/dL Calcium (8.4-10.2) mg/dL Magnesium (1.6-2.6) mg/dL Total Bilirubin (0.0-1.0) mg/dL AST (5-31) U/L ALT (0-31) U/L Alkaline Phosphatase (39-117) U/L Total Protein (6.5-8.0) g/dL Albumin (3.5-5.0) g/dL Lipase (8-78) U/L Beta HCG, Quant mIU/mL Urine Color DK YELLOW Urine Appearance CLEAR Urine pH 5.5 (5.0-8.0) Ur Specific [place] >= 1.030 H (1.005-1.025) Urine Protein 1+ H (NEG-TRACE) MG/DL Urine Glucose (UA) NEG (NEG) MG/DL Urine Ketones 15 (NEG) MG/DL Urine Blood TRACE (NEG) Urine Nitrite NEG (NEG) Ur Leukocyte Esterase NEG (NEG) Urine RBC 0-2 (0) /HPF Urine WBC 0 (0-4) /HPF Ur Squamous Epith Cells 4+ /LPF Urine Bacteria TRACE /LPF Urine Mucus 2+ /LPF Urine Test NEGATIVE (NEGATIVE) COVID-19 (KRISTIN) Negative (Negative) COVID-19 Clin Com See Note Influenza Type A (GIULIANA) (Negative) Influenza Type B (GIULIANA) (Negative) Influenza A & B Note Critical Care Time Critical Care Time Critical Care Time: No Discharge Plan Discharge Clinical Impression: Viral infection, Abdominal pain, Nausea & vomiting Patient Disposition: Home, Self-Care Instructions: Acute Nausea and Vomiting (ED), Viral Syndrome (ED), Abdominal Pain (ED) Additional Instructions: Take your medications as prescribed. If you were prescribed antibiotics today, it is important that you take your medication to their entirety, do not skip any doses, do not finish them early. Follow-up with your primary care provider this week. Return to the emergency department with new or worsening symptoms. Such as fevers, chills, chest pain, shortness of breath, nausea, vomiting, dizziness, headache, vision changes, lethargy In case of emergency call 911 Please drink plenty of fluids. Practice good hand hygiene. Prescriptions: New ondansetron 4 mg tablet,disintegrating 4 mg PO ONCE PRN (Reason: nausea and vomiting) Qty: 10 0RF No Action ketorolac 10 mg tablet 10 mg PO Q6H PRN (Reason: pain) 5 Days Qty: 20 0RF Rx Instructions: Patient received Toradol in the emergency room. ketorolac 10 mg tablet 10 mg PO Q6H 5 Days Qty: 20 0RF cyclobenzaprine 10 mg tablet 10 mg PO TID PRN (Reason: muscle spasm) Qty: 14 0RF lidocaine 4 % adhesive patch,medicated 1 patch topical DAILY PRN (Reason: pain) Qty: 10 0RF Rx Instructions: may leave on for up to 12 hrs ibuprofen 600 mg tablet 600 mg PO Q6H PRN (Reason: pain) Qty: 30 0RF Referrals: Physician,Unknown J [Primary Care Provider] - 2 days Stand Alone Forms: Work/School Release
[2021-11-21 22:44] LABS: Basophils Absolute Auto 0.1 X10*3/uL (0.0-0.2); Basophils Percent Auto 0.3 % (0-2); Eosinophils Absolute Auto 0.2 X10*3/uL (0.0-0.4); Eosinophils Percent Auto 0.9 % (0-4); Hematocrit 46.8 % (37.0-47.0); Hemoglobin 15.5 g/dl (12.0-16.0); Imm Gran Abs Auto 0.17 X10*3/uL (0.00-0.03); Imm Gran Pct Auto 0.7 % (0.0-0.4); Lymphocytes Absolute Auto 1.9 X10*3/uL (1.2-4.9); Lymphocytes Percent Auto 8.1 % (20-40); MANUAL DIFF FLAG SCAN; Mean Corpuscular HGB Conc 33.1 g/dl (31.0-35.0); Mean Corpuscular Hemoglobin 30.1 pg (27.0-33.0); Mean Corpuscular Volume 90.9 fL (80.0-98.0); Mean Platelet Volume 10.1 fL (9.4-12.3); Monocytes Percent Auto 4.1 % (2-11); Neutrophils Absolute Auto 20.3 x10*3/uL (2.0-8.3); Neutrophils Percent Auto 85.9 % (45-73); Platelet Count 291 X10*3/uL (160-400); Red Blood Count 5.15 X10*6/uL (4.20-5.50); Red Cell Distribution Width 12.1 % (11.0-16.0); SCAN SMEAR FLAG 1; White Blood Count 23.6 X10*3/uL (4.8-10.8)
[2021-11-21 22:59] LABS: COVID-19 Test Negative (Negative)
[2021-11-21 23:00] LABS: Alanine Aminotransferase 45 U/L (0-31); Albumin Level 4.7 g/dL (3.5-5.0); Alkaline Phosphatase 106 U/L (39-117); Anion Gap 17 (12-20); Aspartate Amino Transferase 31 U/L (5-31); Bilirubin Total 0.7 mg/dL (0.0-1.0); Blood Urea Nitrogen 17 mg/dL (9-16); Calcium 10.3 mg/dL (8.4-10.2); Carbon Dioxide 23 mmol/L (22-29); Chloride 103 mmol/L (96-108); Creatinine Clr Calc Pharmacy 114.4; Estimated Glomerular Filt Rate > 60; Glucose Random 111 mg/dL (60-115); IDNOW Serial# 08D9AD1C; Influenza A Negative (Negative); Influenza B2 Negative (Negative); Lipase 20 U/L (8-78); Magnesium 1.6 mg/dL (1.6-2.6); Potassium 4.5 mmol/L (3.3-5.1); Sodium 138 mmol/L (135-145); Total Protein 7.8 g/dL (6.5-8.0)
[2021-11-21 23:06] LABS: HCG Quantitative < 2 mIU/mL
[2021-11-21 23:13] LABS: SLIDE REVIEW VERIFIED
[2021-11-21 23:28] LABS: UPreg QC Valid YES; Urine Pregnancy NEGATIVE (NEGATIVE)
[2021-11-21 23:32] LABS: Appearance Urine CLEAR; Color Urine DK YELLOW; Glucose Urine UA NEG (NEG); Leukocyte Esterase Urine NEG (NEG); Nitrite Urine NEG (NEG); PH 5.5 (5.0-8.0); Specific Gravity - Urine >= 1.030 (1.005-1.025); UACC Culture Trigger NO; Urine Blood TRACE (NEG); Urine Ketones 15 MG/DL (NEG); Urine Protein 1+ MG/DL (NEG-TRACE)
[2021-11-21 23:34] LABS: Mucus Urine 2+ /LPF; Squamous Epithelial Cell Urine 4+ /LPF
[2021-11-21 23:35] LABS: Bacteria Urine TRACE /LPF; RBC Urine 0-2 /HPF (0); WBC Urine 0 /HPF (0-4)
[2021-11-21] MEDS: iohexoL 350 MG/ML 100 ML INFUS..BTL 85 ML IV (23:46)
[2021-11-22 00:23] VITALS: BP 118/84; PULSE 102; RESP 12; TEMP 37.2; O2SAT 99
[2021-11-22] MEDS: ondansetron HCL 4 MG/2 ML VIAL IVPUSH (00:25)
== END 2021-11-22 01:05 | disposition home or self-care (01) ==
PROVIDERS: Physician Assistant; Emergency Provider Internal Medicine
DX: B34.9 Viral infection, unspecified (principal); R10.12 Left upper quadrant pain; Z20.822 Contact with and (suspected) exposure to COVID-19; Z79.899 Other long term (current) drug therapy
CPT/HCPCS: 74177; 80053; 81001; 81025; 83690; 83735; 84702; 85025; 87502; 87635; 96374; 96375; 99284; J1885; J2405; Q9967

== ENCOUNTER 2022-04-06 23:00 | Emergency (ER) | payer MEDICAID, SELFPAY ==
--- NOTE | ~2022-04-06 | CT_ITS ---
EXAMINATION: CT ABDOMEN AND PELVIS WITHOUT CONTRAST CLINICAL INFORMATION: Right lower quadrant quadrant pain COMPARISON: 11/21/2021 TECHNIQUE: Multidetector volumetric imaging was performed from the superior aspect of the liver through the pubic symphysis. Sagittal and coronal reformatted images were obtained on the technologist's workstation. This CT examination was performed using dose optimization techniques as appropriate, variously including the following: *Automated exposure control *Adjustment of mA and/or kV according to patient size (this includes techniques or standardized protocols for targeted exams where dose is matched to indication/reason for exam; i.e. extremities or head) *Use of iterative reconstruction technique DLP: 815 mGy-cm FINDINGS: LUNG BASES: The visualized lung bases are unremarkable. LIVER, GALLBLADDER, AND BILIARY TREE: The liver is normal in size, shape, and attenuation. No focal hepatic lesion or biliary ductal dilatation is present. Gallbladder unremarkable. PANCREAS: Unremarkable. SPLEEN: Unremarkable. ADRENAL GLANDS: Unremarkable. KIDNEYS AND URETERS: The kidneys are normal in size, shape, and attenuation. No hydronephrosis, hydroureter, or calculi seen. No perinephric stranding. BLADDER: Unremarkable. GASTROINTESTINAL TRACT: The small and large bowel are unremarkable. The appendix is unremarkable. ABDOMINAL WALL: No significant hernia is appreciated. LYMPH NODES: Normal. VASCULAR: Unremarkable. PELVIC VISCERA: IUD present within the uterus. Ovaries unremarkable. OSSEOUS STRUCTURES: No acute or suspicious osseous abnormalities. CT/CT abdomen pelvis wo con IMPRESSION: No acute findings within the abdomen or pelvis to explain the patient's symptomatology.
[2022-04-06 23:21] VITALS: BP 144/114; PULSE 97; RESP 18; TEMP 36.6; O2SAT 99; BMI 37.5
[2022-04-06 23:29] VITALS: BP 140/78; PULSE 86; RESP 17; TEMP 36.8; O2SAT 96
--- NOTE | 2022-04-06 23:56 | ED_ITS ---
HPI - Abdominal Pain General Chief Complaint: Abdominal Pain Stated Complaint: R lower abd, back & leg pain, diarrhea Time Seen by Provider: 04/06/22 23:29 Source: patient Mode of arrival: ambulatory Limitations: no limitations History of Present Illness HPI narrative: Patient comes to the emergency room complaining of 2 days of right lower quadrant pain radiating towards the back. Patient states that she is known to have ovarian cysts, but this time the patient states that the pain feels sharper than usual and could not tolerate the pain. Patient denies fever or chills, no nausea vomiting or diarrhea. No hematuria or dysuria. Related Data Previous Rx's Medication Instructions Recorded ketorolac 10 mg tablet 10 mg PO Q6H PRN pain 5 days #20 05/11/21 tabs ketorolac 10 mg tablet 10 mg PO Q6H 5 days #20 tabs 06/03/21 cyclobenzaprine 10 mg tablet 10 mg PO TID PRN muscle spasm #14 08/31/21 tabs ibuprofen 600 mg tablet 600 mg PO Q6H PRN pain #30 tabs 08/31/21 lidocaine 4 % topical patch 1 patch topical DAILY PRN pain #10 08/31/21 ea ondansetron 4 mg disintegrating 4 mg PO ONCE PRN nausea and 11/21/21 tablet vomiting #10 tabs dicyclomine 10 mg capsule 10 mg PO TID PRN abdominal 04/07/22 discomfort #14 caps Allergies Allergy/AdvReac Type Severity Reaction Status Date / Time ciprofloxacin Allergy Vomiting Verified 04/06/22 23:22 Review of Systems Review of Systems Constitutional : No Weight loss, No Fever, No Chills, No Night Sweats, No Fatigue, No Malaise ENT/Mouth : No Hearing loss, No Ear Pain, No Nasal Congestion, No Sinus Pain, No Hoarseness, No sore throat, No Rhinorrhea, No Swallowing Difficulty Eyes: No Eye Pain, No Swelling, No Redness, No Foreign Body, No Discharge, No Vision Changes Cardiovascular : No Chest Pain, No SOB, No Dyspnea on Exertion, No Orthopnea, No Edema, No Palpitations Respiratory : No Cough, No Sputum, No Wheezing, No Smoke Exposure, No Dyspnea Gastrointestinal : No Nausea, No Vomiting, No Diarrhea, No Constipation, complaining of right lower quadrant pain radiating towards the back Genitourinary : no irregular bleeding, No Dysuria, No Urinary Frequency, No He maturia, No Urinary Incontinence, No Urgency, No Flank Pain, No Urinary Flow Changes, No Hesitancy Musculoskeletal : No joint pain, No Myalgias, No Joint Swelling Skin : No Skin Lesions, No rash Neuro : No Weakness, No Numbness, No Paresthesias, No Loss of Consciousness, No Dizziness, No Headache Psych : No Anxiety/Panic, No Depression, No SI/HI/AH/VH, No Social Issues, Heme/Lymph: No Bruising, No Bleeding,No Lymphadenopathy Endocrine : No Polyuria, No Polydipsia, No Temperature Intolerance [facility] Past Medical History Medical History Anxiety Depression Ovarian cyst UTI (urinary tract infection) Surgical History History of salpingo-oophorectomy Social History Social History Alcohol intake: never Patient Tobacco Use Status: Current everyday Tobacco user Advance Directives: No Advance Directives Information Provided: No Physical Exam ED Vital Signs: Vital Signs - 24 hr 04/06/22 23:21 04/06/22 23:29 04/07/22 02:05 Temperature 97.8 F 98.3 F Pulse Rate 97 86 Respiratory Rate 18 17 18 Blood Pressure 144/114 H 140/78 H Pulse Oximetry 99 96 Oxygen Delivery Method Room Air Room Air 04/07/22 02:25 Temperature 98.3 F Pulse Rate 85 Respiratory Rate 16 Blood Pressure 113/70 Pulse Oximetry 97 Oxygen Delivery Method Room Air BMI result Body Mass Index 37.5 Const Other: Appearance: Alert. Oriented X3. No acute distress. Seems uncomfortable Eyes: Pupils equal, round and reactive to light. ENT: Pharynx normal. Neck: Normal inspection. Neck supple. No lymph nodes noted. No crepitus CVS: Normal heart rate and rhythm. Pulses normal. Normal S1 and S2 Respiratory: No respiratory distress. Breath sounds normal. No Wheezing. No rales Abdomen: Soft pain to palpation over the right lower quadrant, no guarding, no rebound Skin: Skin warm and dry. Normal skin color. Normal skin turgor. Extremities: No lower extremity edema. No Lacerations. No Rash Neuro: Oriented X 3. No motor deficit. No sensory deficit. Moving all extremities. No slurred speech. CN 2 through 12 grossly intact Psych: calm, cooperative, normal affect Course Course Course Narrative: Labs and imaging pending. Patient received IV Toradol for pain. I discussed the labs and imaging with the patient, no acute findings. The appendix is unremarkable, patient had a right-sided salpingo-oophorectomy, for ultrasound May 2021, right ovary is absent MDM - Abdominal Pain Lab Data Result diagrams: 04/07/22 00:04 04/07/22 00:04 Labs: Lab Results 04/07/22 04/07/22 04/07/22 Range/Units 00:04 00:04 00:42 WBC 13.6 H (4.8-10.8) X10*3/uL RBC 4.42 (4.20-5.50) X10*6/uL Hgb 13.5 (12.0-16.0) g/dl Hct 39.2 (37.0-47.0) % MCV 88.7 (80.0-98.0) fL MCH 30.5 (27.0-33.0) pg MCHC 34.4 (31.0-35.0) g/dl RDW 12.5 (11.0-16.0) % Plt Count 273 (160-400) X10*3/uL MPV 10.3 (9.4-12.3) fL Immature Gran % (Auto) 0.4 (0.0-0.4) % Neut % (Auto) 63.2 (45-73) % Lymph % (Auto) 29.0 (20-40) % [place] % (Auto) 4.3 (2-11) % Eos % (Auto) 2.7 (0-4) % Baso % (Auto) 0.4 (0-2) % Lymph # (Auto) 3.9 (1.2-4.9) X10*3/uL [place] # (Auto) 0.6 (0.1-1.2) X10*3/uL Eos # (Auto) 0.4 (0.0-0.4) X10*3/uL Baso # (Auto) 0.1 (0.0-0.2) X10*3/uL Abs Immat Gran (auto) 0.06 H (0.00-0.03) X10*3/uL Absolute Neuts (auto) 8.6 H (2.0-8.3) x10*3/uL Absolute Nucleated RBC 0.000 (0.0-0.012) X10*3/uL Nucleated RBC % (auto) 0.0 (0.0-0.2) /100WBC Sodium 143 (135-145) mmol/L Potassium 3.5 D (3.3-5.1) mmol/L Chloride 107 (96-108) mmol/L Carbon Dioxide 23 (22-29) mmol/L Anion Gap 17 (12-20) BUN 11 (9-16) mg/dL Creatinine 0.79 (0.5-1.4) mg/dL Estim Creat Clear Calc 119.1 Estimated GFR > 60 Random Glucose 117 H (60-115) mg/dL Calcium 9.4 D (8.4-10.2) mg/dL Total Bilirubin 0.3 (0.0-1.0) mg/dL Direct Bilirubin 0.2 (0.0-0.5) mg/dL AST 24 (5-31) U/L ALT 30 (0-31) U/L Alkaline Phosphatase 104 (39-117) U/L Total Protein 7.2 (6.5-8.0) g/dL Albumin 4.4 (3.5-5.0) g/dL Beta HCG, Quant < 2 mIU/mL Urine Color DK YELLOW Urine Appearance CLEAR Urine pH 5.5 (5.0-8.0) Ur Specific [place] >= 1.030 H (1.005-1.025) Urine Protein TRACE (NEG-TRACE) MG/DL Urine Glucose (UA) NEG (NEG) MG/DL Urine Ketones 5 (NEG) MG/DL Urine Blood NEG (NEG) Urine Nitrite NEG (NEG) Ur Leukocyte Esterase NEG (NEG) Discharge Plan Discharge Clinical Impression: Abdominal pain Patient Disposition: Home, Self-Care Instructions: Abdominal Pain (ED) Additional Instructions: Please follow-up with your primary care physician tomorrow. If you have any worsening or new symptoms, please return to the emergency room or call 911 Prescriptions: New dicyclomine 10 mg capsule 10 mg PO TID PRN (Reason: abdominal discomfort) Qty: 14 0RF No Action ketorolac 10 mg tablet 10 mg PO Q6H PRN (Reason: pain) 5 Days Qty: 20 0RF Rx Instructions: Patient received Toradol in the emergency room. ketorolac 10 mg tablet 10 mg PO Q6H 5 Days Qty: 20 0RF ondansetron 4 mg tablet,disintegrating 4 mg PO ONCE PRN (Reason: nausea and vomiting) Qty: 10 0RF cyclobenzaprine 10 mg tablet 10 mg PO TID PRN (Reason: muscle spasm) Qty: 14 0RF lidocaine 4 % adhesive patch,medicated 1 patch topical DAILY PRN (Reason: pain) Qty: 10 0RF Rx Instructions: may leave on for up to 12 hrs ibuprofen 600 mg tablet 600 mg PO Q6H PRN (Reason: pain) Qty: 30 0RF Referrals: Olegario Jordan [Physician] - 3 days
[2022-04-07 00:08] LABS: MANUAL DIFF FLAG NO
[2022-04-07 00:13] LABS: Basophils Absolute Auto 0.1 X10*3/uL (0.0-0.2); Basophils Percent Auto 0.4 % (0-2); Eosinophils Absolute Auto 0.4 X10*3/uL (0.0-0.4); Eosinophils Percent Auto 2.7 % (0-4); Hematocrit 39.2 % (37.0-47.0); Hemoglobin 13.5 g/dl (12.0-16.0); Imm Gran Abs Auto 0.06 X10*3/uL (0.00-0.03); Imm Gran Pct Auto 0.4 % (0.0-0.4); Lymphocytes Absolute Auto 3.9 X10*3/uL (1.2-4.9); Mean Corpuscular HGB Conc 34.4 g/dl (31.0-35.0); Mean Corpuscular Hemoglobin 30.5 pg (27.0-33.0); Mean Corpuscular Volume 88.7 fL (80.0-98.0); Mean Platelet Volume 10.3 fL (9.4-12.3); Monocytes Absolute Auto 0.6 X10*3/uL (0.1-1.2); Monocytes Percent Auto 4.3 % (2-11); Neutrophils Absolute Auto 8.6 x10*3/uL (2.0-8.3); Neutrophils Percent Auto 63.2 % (45-73); Platelet Count 273 X10*3/uL (160-400); Red Blood Count 4.42 X10*6/uL (4.20-5.50); Red Cell Distribution Width 12.5 % (11.0-16.0); White Blood Count 13.6 X10*3/uL (4.8-10.8)
[2022-04-07 00:27] LABS: Alanine Aminotransferase 30 U/L (0-31); Albumin Level 4.4 g/dL (3.5-5.0); Alkaline Phosphatase 104 U/L (39-117); Anion Gap 17 (12-20); Aspartate Amino Transferase 24 U/L (5-31); Bilirubin Direct 0.2 mg/dL (0.0-0.5); Bilirubin Total 0.3 mg/dL (0.0-1.0); Blood Urea Nitrogen 11 mg/dL (9-16); Calcium 9.4 mg/dL (8.4-10.2); Carbon Dioxide 23 mmol/L (22-29); Chloride 107 mmol/L (96-108); Creatinine Clr Calc Pharmacy 119.1; Estimated Glomerular Filt Rate > 60; Glucose Random 117 mg/dL (60-115); Potassium 3.5 mmol/L (3.3-5.1); Sodium 143 mmol/L (135-145); Total Protein 7.2 g/dL (6.5-8.0)
[2022-04-07 00:34] LABS: HCG Quantitative < 2 mIU/mL
[2022-04-07] MEDS: Ketorolac Tromethamine 30 MG/ML VIAL IVPUSH (00:38)
[2022-04-07 00:48] LABS: Appearance Urine CLEAR; Color Urine DK YELLOW; Glucose Urine UA NEG (NEG); Leukocyte Esterase Urine NEG (NEG); Nitrite Urine NEG (NEG); PH 5.5 (5.0-8.0); Specific Gravity - Urine >= 1.030 (1.005-1.025); Urine Blood NEG (NEG); Urine Ketones 5 MG/DL (NEG); Urine Protein TRACE MG/DL (NEG-TRACE)
[2022-04-07 02:05] VITALS: RESP 18
[2022-04-07] MEDS: ondansetron HCL 4 MG/2 ML VIAL IVPUSH (02:05)
[2022-04-07] MEDS: Morphine Sulfate 4 MG/ML CARTRIDGE IVPUSH (02:05)
[2022-04-07 02:25] VITALS: BP 113/70; PULSE 85; RESP 16; TEMP 36.8; O2SAT 97
== END 2022-04-07 03:39 | disposition home or self-care (01) ==
PROVIDERS: Emergency Provider Emergency Medicine; PCP Physician Assistant
DX: R10.31 Right lower quadrant pain (principal); M79.605 Pain in left leg; M79.604 Pain in right leg; Z79.899 Other long term (current) drug therapy; M54.50 Low back pain, unspecified; F17.200 Nicotine dependence, unspecified, uncomplicated; Z71.6 Tobacco abuse counseling
CPT/HCPCS: 36415; 74176; 80048; 80076; 81003; 84702; 85025; 96374; 96375; 99284; J1885; J2270; J2405

== ENCOUNTER 2022-04-23 19:17 | Emergency (ER) | payer MEDICAID, SELFPAY ==
--- NOTE | ~2022-04-23 | US_ITS ---
EXAMINATION: US ABDOMEN LIMITED CLINICAL INFORMATION: Right upper quadrant pain. COMPARISON: None TECHNIQUE: Real-time imaging of the gallbladder. FINDINGS: GALLBLADDER: Normal. The gallbladder is physiologically distended without evidence of stones, sludge, polyps, wall thickening or pericholecystic fluid. COMMON BILE DUCT: Normal in caliber measuring 0.6 cm in diameter. FREE FLUID: None. US/US abdomen limited IMPRESSION: Normal appearance of the gallbladder. No stones.
[2022-04-23 19:51] VITALS: BP 111/88; PULSE 98; RESP 16; TEMP 37.3; O2SAT 99; BMI 35.8
[2022-04-23 20:07] LABS: MANUAL DIFF FLAG NO
[2022-04-23] MEDS: Acetaminophen 325 MG TABLET 975 MG PO (20:08)
[2022-04-23 20:22] LABS: Basophils Absolute Auto 0.1 X10*3/uL (0.0-0.2); Basophils Percent Auto 0.6 % (0-2); Eosinophils Absolute Auto 0.3 X10*3/uL (0.0-0.4); Eosinophils Percent Auto 2.1 % (0-4); Hematocrit 41.2 % (37.0-47.0); Hemoglobin 14.4 g/dl (12.0-16.0); Imm Gran Abs Auto 0.05 X10*3/uL (0.00-0.03); Imm Gran Pct Auto 0.3 % (0.0-0.4); Lymphocytes Absolute Auto 3.6 X10*3/uL (1.2-4.9); Lymphocytes Percent Auto 24.8 % (20-40); Mean Corpuscular Volume 88.6 fL (80.0-98.0); Mean Platelet Volume 10.4 fL (9.4-12.3); Monocytes Absolute Auto 0.7 X10*3/uL (0.1-1.2); Monocytes Percent Auto 5.1 % (2-11); Neutrophils Absolute Auto 9.6 x10*3/uL (2.0-8.3); Neutrophils Percent Auto 67.1 % (45-73); Platelet Count 291 X10*3/uL (160-400); Red Blood Count 4.65 X10*6/uL (4.20-5.50); Red Cell Distribution Width 12.2 % (11.0-16.0); White Blood Count 14.3 X10*3/uL (4.8-10.8)
[2022-04-23 20:23] LABS: Appearance Urine Clear; Color Urine Yellow; Glucose Urine UA Negative (Negative); Leukocyte Esterase Urine Negative (Negative); Nitrite Urine Negative (Negative); Specific Gravity - Urine 1.025 (1.005-1.025); Urine Blood Negative (Negative); Urine Ketones Trace mg/dL (Negative); Urine Protein Negative (Neg-Trace)
[2022-04-23 20:23] LABS: Alanine Aminotransferase 31 U/L (0-31); Albumin Level 4.4 g/dL (3.5-5.0); Alkaline Phosphatase 109 U/L (39-117); Anion Gap 16 (12-20); Aspartate Amino Transferase 26 U/L (5-31); Bilirubin Direct 0.3 mg/dL (0.0-0.5); Bilirubin Total 0.4 mg/dL (0.0-1.0); Blood Urea Nitrogen 10 mg/dL (9-16); Calcium 9.2 mg/dL (8.4-10.2); Carbon Dioxide 22 mmol/L (22-29); Chloride 106 mmol/L (96-108); Estimated Glomerular Filt Rate > 60; Glucose Random 90 mg/dL (60-115); Lipase 17 U/L (8-78); Potassium 3.9 mmol/L (3.3-5.1); Sodium 140 mmol/L (135-145); Total Protein 7.2 g/dL (6.5-8.0)
[2022-04-23 21:57] VITALS: BP 115/74; PULSE 82; RESP 15; TEMP 36.9; O2SAT 99
--- NOTE | 2022-04-23 22:38 | ED_ITS ---
HPI - Abdominal Pain General Chief Complaint: Abdominal Pain Stated Complaint: abd pain, dizziness Time Seen by Provider: 04/23/22 22:23 Source: patient Limitations: no limitations History of Present Illness HPI narrative: This is a 36-year-old female who states she has chronic abdominal pain that has never been figured out, who complains of pain in her right lower abdomen that she has had for over 2 weeks. Patient was seen here on April [address] scan which was unremarkable. She did follow up with her primary care physician and was put on a probiotic, sucralfate, omeprazole. The patient states that she initially had diarrhea and then after taking his medications her stool became more firm but the pain did not improve. Patient states she has had no appetite and has been losing weight. She states that every time she eats or drinks she gets pain in her right abdomen. She said initially was with just food but now even with just drinking water she gets pain. She has had a low-grade fever she believes. She has had nausea but denies any recent vomiting. She denies any cough or shortness of breath. She denies any dysuria or urinary frequency. Related Data Previous Rx's Medication Instructions Recorded ketorolac 10 mg tablet 10 mg PO Q6H PRN pain 5 days #20 05/11/21 tabs ketorolac 10 mg tablet 10 mg PO Q6H 5 days #20 tabs 06/03/21 cyclobenzaprine 10 mg tablet 10 mg PO TID PRN muscle spasm #14 08/31/21 tabs ibuprofen 600 mg tablet 600 mg PO Q6H PRN pain #30 tabs 08/31/21 lidocaine 4 % topical patch 1 patch topical DAILY PRN pain #10 08/31/21 ea ondansetron 4 mg disintegrating 4 mg PO ONCE PRN nausea and 11/21/21 tablet vomiting #10 tabs dicyclomine 10 mg capsule 10 mg PO TID PRN abdominal 04/07/22 discomfort #14 caps Allergies Allergy/AdvReac Type Severity Reaction Status Date / Time ciprofloxacin Allergy Vomiting Verified 04/06/22 23:22 Review of Systems Review of Systems Yes all other systems are reviewed and are negative Constitutional: Reports as per HPI, Denies fever(s) and Reports poor appetite Eyes: Reports as per HPI and Reports no additional eye complaints Reports system reviewed and no additional complaints, except as documented, Reports as per HPI, Denies nasal congestion, Denies nasal discharge and Denies sore throat Cardiovascular: Reports as per HPI, Denies chest pain and Denies dyspnea Respiratory: Reports as per HPI, Denies cough and Denies dyspnea Gastrointestinal: Reports as per HPI, Reports abdominal pain, Denies diarrhea, Reports nausea and Denies vomiting Genitourinary: Reports as per HPI, Denies hematuria, Denies urinary frequency and Denies dysuria Musculoskeletal: Reports no additional musculoskeletal complaints and Denies numbness Skin/Breast: Reports as per HPI and Denies rash Reports as per HPI, Denies focal weakness and Denies numbness Psychiatric: Reports no additional psychiatric complaints and Reports as per HPI Endocrine: Reports no additional endocrine complaints and Reports as per HPI Hematologic/Lymphatic: Reports no additional hematologic/lymphatic complaints, Reports as per HPI and Reports other (No peripheral edema) [facility] Past Medical History Medical History Anxiety Depression Ovarian cyst UTI (urinary tract infection) Surgical History History of salpingo-oophorectomy Social History Social History Alcohol intake: never Patient Tobacco Use Status: Current everyday Tobacco user Advance Directives: No Advance Directives Information Provided: No Physical Exam ED Vital Signs: Vital Signs - 24 hr 04/23/22 19:51 04/23/22 21:57 Temperature 99.2 F 98.5 F Pulse Rate 98 82 Respiratory Rate 16 15 Blood Pressure 111/88 115/74 Pulse Oximetry 99 99 Oxygen Delivery Method Room Air Room Air BMI result Body Mass Index 35.8 Const Other: Moderately obese General: no acute distress Orientation/consciousness: patient oriented x3 HENMT Head: Yes normal to inspection General nose exam: Normal external nose present Mouth: moist mucous membranes Throat: Yes posterior oropharynx normal, Yes tonsils normal and Yes uvula midline Eyes Eyelids: Yes eyelids normal Conjunctivae: conjunctivae normal Pupils: Equal, round and reactive pupils present Neck Neck: Yes supple Resp Effort & Inspection: normal respiratory effort Auscultation: clear to auscultation bilaterally Cardio Rate: regular rate Rhythm: regular rhythm Heart sounds: S1 normal heart sound present, S2 normal heart sound present, no gallops, no murmurs and no rubs GI Other: Tender right side mid to upper quadrant. No tenderness at McBurney's point. Patient seems a little histrionic upon palpation Inspection: No distended Palpation (GI): Soft to palpation and nontender Auscultation: normal bowel sounds Skin General skin exam: other (Warm and dry) Neuro General: patient oriented x3 and CN's II-XI intact bilaterally Cranial nerves: Yes Equal, round and reactive pupils present Extrem General: Yes no pedal edema Psych Affect: normal affect Attitude: cooperative MDM - Abdominal Pain MDM Narrative Medical decision making narrative: Patient with early chronic abdominal pain, has had CT scans twice this year which have not shown anything except for fatty liver on her initial CT. Patient has had an elevated white blood cell count previously, as high as 23 in the spring. Patient's pain seemed to be more in her right upper quadrant today, with tenderness on exam. Ultrasound was done and did not show any abnormalities. Given that the patient reports chronic abdominal pain which has never been found to have definite etiology, and given that she has had [address] scans this year, do not believe repeat CT scan is indicated and the risk of excessive radiation dose outweighs any possible benefits. Do not believe the patient likely has appendicitis given the overall clinical picture. Patient is to follow-up with a campus administrative assistant. She may need a HIDA scan, may need endoscopy. Patient reports pain with inability to eat or drink much but her BUN to creatinine ratio is normal, she has no evidence of dehydration. Patient may have psychogenic component to her presentation Lab Data Attestation: I reviewed the patient's lab results. Result diagrams: 04/23/22 20:04 04/23/22 20:04 Labs: Lab Results 04/23/22 04/23/22 04/23/22 Range/Units 20:04 20:04 20:10 WBC 14.3 H (4.8-10.8) X10*3/uL RBC 4.65 (4.20-5.50) X10*6/uL Hgb 14.4 (12.0-16.0) g/dl Hct 41.2 (37.0-47.0) % MCV 88.6 (80.0-98.0) fL MCH 31.0 (27.0-33.0) pg MCHC 35.0 (31.0-35.0) g/dl RDW 12.2 (11.0-16.0) % Plt Count 291 (160-400) X10*3/uL MPV 10.4 (9.4-12.3) fL Immature Gran % (Auto) 0.3 (0.0-0.4) % Neut % (Auto) 67.1 (45-73) % Lymph % (Auto) 24.8 (20-40) % [place] % (Auto) 5.1 (2-11) % Eos % (Auto) 2.1 (0-4) % Baso % (Auto) 0.6 (0-2) % Lymph # (Auto) 3.6 (1.2-4.9) X10*3/uL [place] # (Auto) 0.7 (0.1-1.2) X10*3/uL Eos # (Auto) 0.3 (0.0-0.4) X10*3/uL Baso # (Auto) 0.1 (0.0-0.2) X10*3/uL Abs Immat Gran (auto) 0.05 H (0.00-0.03) X10*3/uL Absolute Neuts (auto) 9.6 H (2.0-8.3) x10*3/uL Absolute Nucleated RBC 0.000 (0.0-0.012) X10*3/uL Nucleated RBC % (auto) 0.0 (0.0-0.2) /100WBC Sodium 140 (135-145) mmol/L Potassium 3.9 (3.3-5.1) mmol/L Chloride 106 (96-108) mmol/L Carbon Dioxide 22 (22-29) mmol/L Anion Gap 16 (12-20) BUN 10 (9-16) mg/dL Creatinine 0.73 (0.5-1.4) mg/dL Estim Creat Clear Calc 130.0 Estimated GFR > 60 Random Glucose 90 (60-115) mg/dL Calcium 9.2 (8.4-10.2) mg/dL Total Bilirubin 0.4 (0.0-1.0) mg/dL Direct Bilirubin 0.3 (0.0-0.5) mg/dL AST 26 (5-31) U/L ALT 31 (0-31) U/L Alkaline Phosphatase 109 (39-117) U/L Total Protein 7.2 (6.5-8.0) g/dL Albumin 4.4 (3.5-5.0) g/dL Lipase 17 (8-78) U/L Urine Color Yellow Urine Appearance Clear Urine pH 6.0 (5.0-8.0) Ur Specific [place] 1.025 (1.005-1.025) Urine Protein Negative (Neg-Trace) mg/dL Urine Glucose (UA) Negative (Negative) mg/dL Urine Ketones Trace (Negative) mg/dL Urine Blood Negative (Negative) Urine Nitrite Negative (Negative) Ur Leukocyte Esterase Negative (Negative) Imaging Data Right upper quadrant ultrasound: Radiologist's impression: No gallstones or other acute pathology Discharge Plan Discharge Clinical Impression: Chronic abdominal pain Patient Disposition: Home, Self-Care Instructions: Abdominal Pain (ED) Additional Instructions: Follow-up with primary care physician, as well as Gastroenterology as previously referred. Return for any new or worsened symptoms such as fever, progressively worse pain. Prescriptions: No Action ketorolac 10 mg tablet 10 mg PO Q6H PRN (Reason: pain) 5 Days Qty: 20 0RF Rx Instructions: Patient received Toradol in the emergency room. ketorolac 10 mg tablet 10 mg PO Q6H 5 Days Qty: 20 0RF ondansetron 4 mg tablet,disintegrating 4 mg PO ONCE PRN (Reason: nausea and vomiting) Qty: 10 0RF dicyclomine 10 mg capsule 10 mg PO TID PRN (Reason: abdominal discomfort) Qty: 14 0RF cyclobenzaprine 10 mg tablet 10 mg PO TID PRN (Reason: muscle spasm) Qty: 14 0RF lidocaine 4 % adhesive patch,medicated 1 patch topical DAILY PRN (Reason: pain) Qty: 10 0RF Rx Instructions: may leave on for up to 12 hrs ibuprofen 600 mg tablet 600 mg PO Q6H PRN (Reason: pain) Qty: 30 0RF Interventions: ED Discharge Assessment Last Done: 04/23/22 23:36 Discharge Date/Time: 04/23/22 23:36
== END 2022-04-23 23:36 | disposition home or self-care (01) ==
PROVIDERS: Emergency Provider Emergency Medicine; PCP Physician Assistant
DX: R42 Dizziness and giddiness (principal); R10.9 Unspecified abdominal pain; Z79.899 Other long term (current) drug therapy
CPT/HCPCS: 36415; 76705; 80053; 81003; 82248; 83690; 85025; 99283; 99284

== ENCOUNTER 2022-04-29 11:40 | Outpatient (REF) | payer MEDICAID, SELFPAY ==
[2022-04-29 12:54] LABS: Alanine Aminotransferase 30 U/L (0-31); Alkaline Phosphatase 107 U/L (39-117); Aspartate Amino Transferase 23 U/L (5-31); Bilirubin Total 0.4 mg/dL (0.0-1.0); Iron 54 mcg/dL (30-160); Percent Iron Saturation 16 % (15-50); Total Iron Binding Capacity 335 mcg/dL (228-428); Unsaturated Iron Binding 281 ug/dL
[2022-04-29 13:14] LABS: TSH reflex Free T4 0.91 uIU/mL (0.32-4.0)
[2022-05-01 14:52] LABS: Immunoglobulin A 222 mg/dL (47-310)
[2022-05-01 23:15] LABS: Transglutaminase IgA <1.0 U/mL
== END 2022-04-29 11:41 | disposition home or self-care (01) ==
LOC: HO.LAB 11:40
PROVIDERS: PCP Physician Assistant; Visit Provider Internal Medicine
DX: R10.9 Unspecified abdominal pain (principal); R19.7 Diarrhea, unspecified; R63.4 Abnormal weight loss; R19.4 Change in bowel habit
CPT/HCPCS: 36415; 82247; 82784; 83520; 83540; 84075; 84443; 84450; 84460; 86140; 86160; 86364; 99202

== ENCOUNTER 2022-05-06 16:18 | Emergency (ER) | payer MEDICAID, SELFPAY ==
[2022-05-06 17:53] VITALS: BP 107/80; PULSE 91; RESP 18; TEMP 36.6; O2SAT 99; BMI 37.4
[2022-05-06 18:10] LABS: MANUAL DIFF FLAG NO
[2022-05-06 18:26] LABS: COVID-19 Test Negative (Negative)
[2022-05-06 18:29] LABS: Alanine Aminotransferase 38 U/L (0-31); Albumin Level 4.4 g/dL (3.5-5.0); Alkaline Phosphatase 107 U/L (39-117); Anion Gap 15 (12-20); Aspartate Amino Transferase 28 U/L (5-31); Bilirubin Direct 0.2 mg/dL (0.0-0.5); Bilirubin Total 0.5 mg/dL (0.0-1.0); Blood Urea Nitrogen 16 mg/dL (9-16); Calcium 9.8 mg/dL (8.4-10.2); Carbon Dioxide 23 mmol/L (22-29); Chloride 106 mmol/L (96-108); Creatinine Clr Calc Pharmacy 125.1; Estimated Glomerular Filt Rate > 60; Glucose Random 94 mg/dL (60-115); Lipase 26 U/L (8-78); Potassium 3.6 mmol/L (3.3-5.1); Sodium 140 mmol/L (135-145); Total Protein 7.2 g/dL (6.5-8.0)
[2022-05-06 18:31] LABS: Appearance Urine Clear; Color Urine Yellow; Glucose Urine UA Negative (Negative); Leukocyte Esterase Urine Trace (Negative); Nitrite Urine Negative (Negative); PH 7.5 (5.0-8.0); Specific Gravity - Urine >= 1.030 (1.005-1.025); Urine Blood Negative (Negative); Urine Ketones Trace mg/dL (Negative); Urine Protein Negative (Neg-Trace)
[2022-05-06 18:33] LABS: UPreg QC Valid YES; Urine Pregnancy NEGATIVE (NEGATIVE)
[2022-05-06 18:33] LABS: Basophils Absolute Auto 0.1 X10*3/uL (0.0-0.2); Basophils Percent Auto 0.6 % (0-2); Eosinophils Absolute Auto 0.3 X10*3/uL (0.0-0.4); Eosinophils Percent Auto 2.5 % (0-4); Hematocrit 41.1 % (37.0-47.0); Hemoglobin 14.4 g/dl (12.0-16.0); Imm Gran Abs Auto 0.08 X10*3/uL (0.00-0.03); Imm Gran Pct Auto 0.6 % (0.0-0.4); Lymphocytes Absolute Auto 3.6 X10*3/uL (1.2-4.9); Mean Corpuscular Hemoglobin 30.8 pg (27.0-33.0); Mean Corpuscular Volume 87.8 fL (80.0-98.0); Mean Platelet Volume 10.5 fL (9.4-12.3); Monocytes Absolute Auto 0.8 X10*3/uL (0.1-1.2); Monocytes Percent Auto 5.7 % (2-11); Neutrophils Absolute Auto 8.5 x10*3/uL (2.0-8.3); Neutrophils Percent Auto 63.6 % (45-73); Platelet Count 302 X10*3/uL (160-400); Red Blood Count 4.68 X10*6/uL (4.20-5.50); Red Cell Distribution Width 12.2 % (11.0-16.0); White Blood Count 13.4 X10*3/uL (4.8-10.8)
[2022-05-06 18:49] LABS: Bacteria Urine None Seen (None Seen); Hyaline Casts Urine 0-2 /LPF (0-2); Squamous Epithelial Cell Urine 0-2 /HPF (0-2); WBC Urine 0-5 /HPF (0-5)
--- NOTE | 2022-05-06 22:01 | ED.ABDPAIN ---
HPI - Abdominal Pain General Chief Complaint: Abdominal Pain Stated Complaint: Abdominal Pain Time Seen by Provider: 05/06/22 22:01 Source: patient Mode of arrival: ambulatory Limitations: no limitations History of Present Illness HPI narrative: Patient chronic abdominal pain with diagnosis of IBS which patient is not satisfied with had multiple CT scans of the abdomen negative has seen fixed wing aircraft flight engineer had colonoscopy in the past comes here for similar pain for last 1 and half months patient saw the fixed wing aircraft flight engineer 04/19 also saw her PCP on 04/25 when she was given 5 tab of oxycodone patient refusing to take any other medications his only oxycodone works patient was giving Celebrex by fixed wing aircraft flight engineer no nausea no vomiting no diarrhea no fever or chills no urinary symptoms Related Data Home Medications Medication Instructions Recorded Confirmed bupropion HCl 150 mg tablet,12 hr 150 mg PO BID 04/29/22 sustained-release gabapentin 300 mg capsule 600 mg PO TID 04/29/22 lorazepam 1 mg tablet 0 mg PO 04/29/22 oxycodone 5 mg tablet 5 mg PO Q8H PRN pain 04/29/22 venlafaxine 150 mg 150 mg PO DAILY 04/29/22 capsule,extended release 24 hr Previous Rx's Medication Instructions Recorded cyclobenzaprine 10 mg tablet 10 mg PO TID PRN muscle spasm #14 08/31/21 tabs celecoxib 200 mg capsule 200 mg PO BID 7 days #14 caps 04/29/22 peg 3350-electrolytes 236 240 ml PO Q10M #4,000 mL 04/29/22 gram-22.74 gram-6.74 gram-5.86 gram solution (Golytely) oxycodone 5 mg tablet 5 mg PO Q6H PRN pain #5 tabs 05/06/22 Allergies Allergy/AdvReac Type Severity Reaction Status Date / Time ciprofloxacin Allergy Vomiting Verified 04/29/22 10:07 Review of Systems Review of Systems Yes all other systems are reviewed and are negative [facility] Past Medical History Medical History Anxiety Depression Ovarian cyst UTI (urinary tract infection) Surgical History History of salpingo-oophorectomy Family History Family History Mother Heart burn Father Non-Hodgkin lymphoma Maternal Aunt Colon cancer Social History Social History Alcohol intake: never Patient Tobacco Use Status: Current everyday Tobacco user Advance Directives: No Advance Directives Information Provided: No Physical Exam ED Vital Signs: Vital Signs - 24 hr 05/06/22 17:53 Temperature 97.8 F Pulse Rate 91 Respiratory Rate 18 Blood Pressure 107/80 Pulse Oximetry 99 Oxygen Delivery Method Room Air BMI result Body Mass Index 37.4 Appearance: Alert. Oriented X3. No acute distress. Anxious Eyes: PERRLA, No Nystagmus ENT: Pharynx normal. Oral Mucosa moist Neck: Normal inspection. Neck supple. CVS: Normal heart rate and rhythm. Pulses normal. Respiratory: No respiratory distress. Equal air entry bilateral, no wheezing/rales/rhonchi Abdomen: Soft diffuse tenderness no rebound tenderness guarding. Bowel sounds are present, no mass palpable, no CVA tenderness Skin: Skin warm and dry. Normal skin color. Normal skin turgor. Extremities: No lower extremity edema. No calf tenderness Neuro: Oriented X 3. No motor deficit. No sensory deficit.No cerebellar signs , cranial nerves II-XII intact MDM - Abdominal Pain MDM Narrative Medical decision making narrative: Patient with chronic abdominal pain asking for oxycodone only very angry and other medication will discharge patient home advised to follow with fixed wing aircraft flight engineer Lab Data Attestation: I reviewed the patient's lab results. Result diagrams: 05/06/22 18:01 05/06/22 18:01 Labs: Lab Results 05/06/22 05/06/22 05/06/22 Range/Units 18:00 18:01 18:01 WBC 13.4 H (4.8-10.8) X10*3/uL RBC 4.68 (4.20-5.50) X10*6/uL Hgb 14.4 (12.0-16.0) g/dl Hct 41.1 (37.0-47.0) % MCV 87.8 (80.0-98.0) fL MCH 30.8 (27.0-33.0) pg MCHC 35.0 (31.0-35.0) g/dl RDW 12.2 (11.0-16.0) % Plt Count 302 (160-400) X10*3/uL MPV 10.5 (9.4-12.3) fL Immature Gran % (Auto) 0.6 H (0.0-0.4) % Neut % (Auto) 63.6 (45-73) % Lymph % (Auto) 27.0 (20-40) % [place] % (Auto) 5.7 (2-11) % Eos % (Auto) 2.5 (0-4) % Baso % (Auto) 0.6 (0-2) % Lymph # (Auto) 3.6 (1.2-4.9) X10*3/uL [place] # (Auto) 0.8 (0.1-1.2) X10*3/uL Eos # (Auto) 0.3 (0.0-0.4) X10*3/uL Baso # (Auto) 0.1 (0.0-0.2) X10*3/uL Abs Immat Gran (auto) 0.08 H (0.00-0.03) X10*3/uL Absolute Neuts (auto) 8.5 H (2.0-8.3) x10*3/uL Absolute Nucleated RBC 0.000 (0.0-0.012) X10*3/uL Nucleated RBC % (auto) 0.0 (0.0-0.2) /100WBC Sodium 140 (135-145) mmol/L Potassium 3.6 (3.3-5.1) mmol/L Chloride 106 (96-108) mmol/L Carbon Dioxide 23 (22-29) mmol/L Anion Gap 15 (12-20) BUN 16 D (9-16) mg/dL Creatinine 0.75 (0.5-1.4) mg/dL Estim Creat Clear Calc 125.1 Estimated GFR > 60 Random Glucose 94 (60-115) mg/dL Calcium 9.8 D (8.4-10.2) mg/dL Total Bilirubin 0.5 (0.0-1.0) mg/dL Direct Bilirubin 0.2 (0.0-0.5) mg/dL AST 28 (5-31) U/L ALT 38 H (0-31) U/L Alkaline Phosphatase 107 (39-117) U/L Total Protein 7.2 (6.5-8.0) g/dL Albumin 4.4 (3.5-5.0) g/dL Lipase 26 (8-78) U/L Urine Color Urine Appearance Urine pH (5.0-8.0) Ur Specific [place] (1.005-1.025) Urine Protein (Neg-Trace) mg/dL Urine Glucose (UA) (Negative) mg/dL Urine Ketones (Negative) mg/dL Urine Blood (Negative) Urine Nitrite (Negative) Ur Leukocyte Esterase (Negative) Urine RBC (0-2) /HPF Urine WBC (0-5) /HPF Ur Squamous Epith Cells (0-2) /HPF Urine Bacteria (None Seen) Hyaline Casts (0-2) /LPF Urine Test (NEGATIVE) COVID-19 (KRISTIN) Negative (Negative) COVID-19 Clin Com See Note 05/06/22 05/06/22 Range/Units 18:15 18:15 WBC (4.8-10.8) X10*3/uL RBC (4.20-5.50) X10*6/uL Hgb (12.0-16.0) g/dl Hct (37.0-47.0) % MCV (80.0-98.0) fL MCH (27.0-33.0) pg MCHC (31.0-35.0) g/dl RDW (11.0-16.0) % Plt Count (160-400) X10*3/uL MPV (9.4-12.3) fL Immature Gran % (Auto) (0.0-0.4) % Neut % (Auto) (45-73) % Lymph % (Auto) (20-40) % [place] % (Auto) (2-11) % Eos % (Auto) (0-4) % Baso % (Auto) (0-2) % Lymph # (Auto) (1.2-4.9) X10*3/uL [place] # (Auto) (0.1-1.2) X10*3/uL Eos # (Auto) (0.0-0.4) X10*3/uL Baso # (Auto) (0.0-0.2) X10*3/uL Abs Immat Gran (auto) (0.00-0.03) X10*3/uL Absolute Neuts (auto) (2.0-8.3) x10*3/uL Absolute Nucleated RBC (0.0-0.012) X10*3/uL Nucleated RBC % (auto) (0.0-0.2) /100WBC Sodium (135-145) mmol/L Potassium (3.3-5.1) mmol/L Chloride (96-108) mmol/L Carbon Dioxide (22-29) mmol/L Anion Gap (12-20) BUN (9-16) mg/dL Creatinine (0.5-1.4) mg/dL Estim Creat Clear Calc Estimated GFR Random Glucose (60-115) mg/dL Calcium (8.4-10.2) mg/dL Total Bilirubin (0.0-1.0) mg/dL Direct Bilirubin (0.0-0.5) mg/dL AST (5-31) U/L ALT (0-31) U/L Alkaline Phosphatase (39-117) U/L Total Protein (6.5-8.0) g/dL Albumin (3.5-5.0) g/dL Lipase (8-78) U/L Urine Color Yellow Urine Appearance Clear Urine pH 7.5 (5.0-8.0) Ur Specific [place] >= 1.030 H (1.005-1.025) Urine Protein Negative (Neg-Trace) mg/dL Urine Glucose (UA) Negative (Negative) mg/dL Urine Ketones Trace (Negative) mg/dL Urine Blood Negative (Negative) Urine Nitrite Negative (Negative) Ur Leukocyte Esterase Trace H (Negative) Urine RBC 6-10 H (0-2) /HPF Urine WBC 0-5 (0-5) /HPF Ur Squamous Epith Cells 0-2 (0-2) /HPF Urine Bacteria None Seen (None Seen) Hyaline Casts 0-2 (0-2) /LPF Urine Test NEGATIVE (NEGATIVE) COVID-19 (KRISTIN) (Negative) COVID-19 Clin Com Discharge Plan Discharge Clinical Impression: Abdominal pain Patient Disposition: Home, Self-Care Instructions: Chronic Abdominal Pain (ED) Additional Instructions: Continue medication and follow up with your fixed wing aircraft flight engineer as scheduled Prescriptions: New oxycodone 5 mg tablet 5 mg PO Q6H PRN (Reason: pain) Qty: 5 0RF Rx Instructions: Partial Fill upon patient request. No Action cyclobenzaprine 10 mg tablet 10 mg PO TID PRN (Reason: muscle spasm) Qty: 14 0RF lorazepam 1 mg tablet 0 mg PO oxycodone 5 mg tablet 5 mg PO Q8H PRN (Reason: pain) gabapentin 300 mg capsule 600 mg PO TID bupropion HCl 150 mg tablet sustained-release 12 hr 150 mg PO BID venlafaxine 150 mg capsule,extended release 24hr 150 mg PO DAILY celecoxib 200 mg capsule 200 mg PO BID 7 Days Qty: 14 0RF peg 3350-electrolytes [Golytely] 236-22.74-6.74 -5.86 gram recon soln 240 ml PO Q10M Qty: 4000 0RF Rx Instructions: as per split prep instructions
[2022-05-06] MEDS: oxyCODONE HCl Immed Release 5 MG TABLET PO (23:28)
== END 2022-05-06 23:32 | disposition home or self-care (01) ==
PROVIDERS: Emergency Provider Internal Medicine; PCP Physician Assistant
DX: R10.9 Unspecified abdominal pain (principal); Z20.822 Contact with and (suspected) exposure to COVID-19; F17.200 Nicotine dependence, unspecified, uncomplicated
CPT/HCPCS: 36415; 80053; 81001; 81025; 82248; 83690; 85025; 87635; 99283

== ENCOUNTER → 2022-05-15 10:35 | Outpatient (REF) | payer MEDICAID, SELFPAY ==
--- NOTE | ~2022-05-15 | NM_ITS ---
EXAMINATION: BILIARY TRACT IMAGING STUDY WITH CCK CLINICAL INFORMATION: Unspecified abdominal pain. COMPARISON: Right upper quadrant abdominal ultrasound done on 04/23/[address] of the abdomen and pelvis done on 04/07/2022.. TECHNIQUE: Serial gamma scintillation camera images were obtained over the abdomen for a total observation period of 68 minutes following the intravenous administration of 5 mCi Tc-99m Mebrofenin. FINDINGS: There is good concentration of activity in the liver by 5 minutes post injection. Biliary activity is visualized by 8 minutes. The gallbladder is well visualized by 15 minutes. Small bowel is well visualized by 35 minutes. At 68 minutes post radiopharmaceutical injection, a 30-minute infusion of 2 micrograms Sincalide was then begun and an additional 40 minutes of images were obtained. There is good emptying of the gallbladder. By the end of the study there is good clearance of activity from the liver and visualization of diffuse small bowel activity. The calculated gallbladder ejection fraction is 94% (normal gallbladder ejection fraction is greater than 35%). NM/NM hepatobiliary w pharm IMPRESSION: Visualization of the gallbladder is evidence of a patent cystic duct and strong evidence against the diagnosis of acute cholecystitis. The common bile duct is patent. Gallbladder emptying and ejection fraction are normal. Liver function appears normal.
== END ==
LOC: HO.NUCMED 10:35
PROVIDERS: Visit Provider Internal Medicine
DX: R10.9 Unspecified abdominal pain (principal)
CPT/HCPCS: 78227; A9537